=== PATIENT | male | born 1960 | race Caucasian/White ===

== ENCOUNTER 2017-09-23 15:54 | Emergency (ER) | payer MEDICARE, MEDICAID ==
--- NOTE | 2017-09-23 16:38 | RADIOLOGY REPORT (SQ) ---
EXAM DESCRIPTION: CT HEAD WITHOUT COMPLETED DATE/TIME: 09/23/2017 4:25 pm REASON FOR STUDY: head injury with LOC COMPARISON: 04/06/2008, 09/20/2007 TECHNIQUE: Axial images acquired through the brain without intravenous contrast. Images reviewed wi th bone, brain and subdural windows. Images stored on PACS. All CT scanners at this facility use dose modulation, iterative reconstruction, and/or weight based d osing when appropriate to reduce radiation dose to as low as reasonably achievable (ALARA). [facility]: Dose Right [facility]: CareDose [facility]: Dose Right [facility]: Teradose 4D [facility]: [employer] RADIATION DOSE: Up-to-date CT equipment and radiation dose reduction techniques were employed. CTDIv ol: 64.6 mGy. DLP: 1163 mGy-cm. mGy. LIMITATIONS: None. FINDINGS: VENTRICLES: Normal size and contour. CEREBRUM: No masses. No hemorrhage. No midline shift. No evidence for acute infarction. Normal gra y/white matter differentiation. No areas of low density in the white matter. CEREBELLUM: No masses. No hemorrhage. No alteration of density. No evidence for acute infarction. EXTRAAXIAL SPACES: No fluid collections. No masses. ORBITS AND GLOBE: No intra- or extraconal masses. Normal contour of globe without masses. CALVARIUM: No fracture. PARANASAL SINUSES: No fluid or mucosal thickening. SOFT TISSUES: No mass or hematoma. OTHER: No other significant finding. IMPRESSION: NORMAL BRAIN CT WITHOUT CONTRAST. EVIDENCE OF ACUTE STROKE: NO. COMMENT: Quality ID # [id number]: Final reports with documentation of one or more dose reduction techniques (e.g., Automated exposure control, adjustment of the mA and/or kV according to patient size, use of iterative reconstruction technique) TECHNICAL DOCUMENTATION: JOB ID: [id number]- All Rights Reserved
[2017-09-23] MEDS ORDERED: NORMAL SALINE 1000 ML 1,000 ML IV ONE (17:23)
[2017-09-23] MEDS ORDERED: DIPH/PERTUSS(ACELL)/TETANUS VAC/PF 0.5 ML SYR (>=10YO) IM ONE ×2 (17:25→22:14)
--- NOTE | 2017-09-23 17:25 | ER Document Report ---
ED Medical Screen (RME) - General Chief Complaint: Head Injury with LOC Stated Complaint: FALL/HEAD INJURY Time Seen by Provider: 09/23/17 17:22 Notes: a wooden roof structure fell onto the patient's head. He states he was unconscious for 3-4 minutes per bystanders. He has had a head CT already which is unremarkable. He complains of neck pain with bilateral hand numbness. He also has pain in between his shoulder blades. He denies any other injuries. TRAVEL OUTSIDE OF THE [place] IN LAST 30 DAYS: No - Related Data Allergies/Adverse Reactions: No Known Allergies Allergy (Verified 09/23/17 16:05) Past Medical History - Social History Chew tobacco use (# tins/day): No Frequency of alcohol use: None Drug Abuse: Marijuana - Past Medical History Cardiac Medical History: Reports: Hx Hypercholesterolemia, Hx Hypertension Endocrine Medical History: Reports: Hx Diabetes Mellitus Type 2 Renal/ Medical History: Denies: Hx Peritoneal Dialysis Psychiatric Medical History: Reports: Hx Bipolar Disorder Past Surgical History: Reports: Hx Cardiac Surgery - electrophysiology, Hx Orthopedic Surgery - right knee - Immunizations Hx Diphtheria, Pertussis, Tetanus Vaccination: Yes - UTD Physical Exam - Vital signs Vitals: Temp Pulse Resp BP Pulse Ox 98.3 F 108 H 18 163/105 H 97 09/23/17 16:10 09/23/17 16:10 09/23/17 16:10 09/23/17 16:10 09/23/17 16:10 Course - Vital Signs Vital signs: Temp Pulse Resp BP Pulse Ox 98.3 F 108 H 18 163/105 H 97 09/23/17 16:10 09/23/17 16:10 09/23/17 16:10 09/23/17 16:10 09/23/17 16:10
[2017-09-23 18:24] LABS: ABSOLUTE BASOPHILS # (AUTO) 0.1 10^3/uL (0.0-0.2); ABSOLUTE EOSINOPHILS # (AUTO) 0.1 10^3/uL (0.0-0.6); ABSOLUTE LYMPHOCYTES (AUTO) 3.5 10^3/uL (0.5-4.7); ABSOLUTE MONOCYTES (AUTO) 0.7 10^3/uL (0.1-1.4); ABSOLUTE NEUT (AUTO) 6.6 10^3/uL (1.7-8.2); BASOPHILS % (AUTO) 1.3 % (0-2); EOSINOPHILS % (AUTO) 0.9 % (0-6); HEMATOCRIT 43.1 % (37.9-51.0); HEMOGLOBIN 13.8 g/dL (13.5-17.0); HGB HCT DIFFERENCE -1.7; LYMPHOCYTES % (AUTO) 31.9 % (13-45); MEAN CORPUSCULAR HEMOGLOBIN 19.9 pg (27.0-33.4); MEAN CORPUSCULAR HGB CONC 32.1 g/dL (32.0-36.0); MONOCYTES % (AUTO) 6.5 % (3-13); RED BLOOD COUNT 6.96 10^6/uL (4.35-5.55); RED CELL DISTRIBUTION WIDTH 16.7 % (11.5-14.0); SEGMENTED NEUTROPHILS % (AUTO) 59.4 % (42-78); WHITE BLOOD COUNT 11.1 10^3/uL (4.0-10.5)
[2017-09-23 18:46] LABS: MICROCYTOSIS 3+; TOXIC GRANULATION SLIGHT
[2017-09-23 18:47] LABS: ANISOCYTOSIS 1+; HYPOCHROMASIA 1+; POIKILOCYTOSIS SLIGHT
[2017-09-23 18:48] LABS: MEAN CORPUSCULAR VOLUME 62 fl (80-97)
--- NOTE | 2017-09-23 19:20 | RADIOLOGY REPORT (SQ) ---
EXAM DESCRIPTION: MRI CERVICAL SPINE WITHOUT COMPLETED DATE/TIME: 09/23/2017 7:00 pm REASON FOR STUDY: trauma/neck pain/hand numbness COMPARISON: None. TECHNIQUE: Sagittal and Axial imaging includes T1, T2, STIR and gradient echo sequences. LIMITATIONS: Study limited due to the patient's body habitus and motion artifact. FINDINGS: ALIGNMENT: Normal. VERTEBRAE: Intact. BONE MARROW: No marrow replacement. Reactive endplate signal change in the lower cervical spine. DISCS: Decreased height and signal of the lower cervical discs. HARDWARE: None in the spine. CORD AND BASE OF BRAIN: Normal in size and signal intensity. SOFT TISSUES: No soft tissue masses. C1-C2: No significant spinal stenosis. C2-C3: No significant spinal stenosis or exit foraminal stenosis. C3-C4: No significant spinal stenosis or exit foraminal stenosis. C4-C5: No significant spinal stenosis or exit foraminal stenosis. C5-C6: Mild diffuse posterior disc and osteophyte. Mild spinal stenosis. Probable facet arthropathy and exit foraminal stenosis, difficult to visualize due to motion artifact. C6-C7: Mild diffuse posterior disc and osteophyte. Mild spinal stenosis. Probable facet arthropathy and exit foraminal stenosis, difficult to visualize due to motion artifact. C7-T1: No significant spinal stenosis or exit foraminal stenosis. UPPER THORACIC: Incompletely imaged. No significant spinal stenosis or exit foraminal stenosis. OTHER: No other significant finding. IMPRESSION: STUDY LIMITED DUE TO THE PATIENT'S BODY HABITUS AND MOTION ARTIFACT. 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 NO APPARENT ACUTE FINDINGS. TECHNICAL DOCUMENTATION: JOB ID: [id number] [employer]- All Rights Reserved
[2017-09-23] MEDS ORDERED: HYDROMORPHONE HCL INJ/PF 2 MG/ML AMPULE IV ONE (20:43)
--- NOTE | 2017-09-23 20:43 | ER Document Report ---
ED General - General Chief Complaint: Head Injury with LOC Stated Complaint: FALL/HEAD INJURY Time Seen by Provider: 09/23/17 17:22 Mode of Arrival: Ambulatory Information source: Patient Notes: 57-year-old male presents after 2500 pound demetrio fell on top of his head. Patient had LOC for about 10 minutes, education took about 10-15 minutes. Patient notes headache abrasion to scalp by nail as well as numbness of bilateral hands of all the digits from the knuckles distal Tetanus is not up-to-date TRAVEL OUTSIDE OF THE [place] IN LAST 30 DAYS: No - HPI Onset: Just prior to arrival Onset/Duration: Sudden Quality of pain: Achy Severity: Moderate Pain Level: 1 Associated symptoms: Weakness, Other Exacerbated by: Movement Relieved by: Denies Similar symptoms previously: No Recently seen / treated by doctor: No - Related Data Allergies/Adverse Reactions: No Known Allergies Allergy (Verified 09/23/17 16:05) Past Medical History - Social History Smoking Status: Current Every Day Smoker Cigarette use (# per day): Yes Chew tobacco use (# tins/day): No Smoking Education Provided: No Frequency of alcohol use: None Drug Abuse: Marijuana Family History: Other - Father admitted with pneumonia Patient has suicidal ideation: No Patient has homicidal ideation: No - Past Medical History Cardiac Medical History: Reports: Hx Hypercholesterolemia, Hx Hypertension Endocrine Medical History: Reports: Hx Diabetes Mellitus Type 2 Renal/ Medical History: Denies: Hx Peritoneal Dialysis Psychiatric Medical History: Reports: Hx Bipolar Disorder Past Surgical History: Reports: Hx Cardiac Surgery - electrophysiology, Hx Orthopedic Surgery - right knee - Immunizations Hx Diphtheria, Pertussis, Tetanus Vaccination: Yes - UTD Review of Systems - Review of Systems Notes: REVIEW OF SYSTEMS: CONSTITUTIONAL : Denies fever, chills, or sweats. Denies recent illness. EENT: Denies eye, ear, throat, or mouth pain or symptoms. Denies nasal or sinus congestion or discharge. Denies throat, tongue, or mouth swelling or difficulty swallowing. CARDIOVASCULAR: Denies chest pain. Denies palpitations or racing or irregular heart beat. Denies ankle edema. RESPIRATORY: Denies cough, cold, or chest congestion. Denies shortness of breath, difficulty breathing, or wheezing. GASTROINTESTINAL: Denies abdominal pain or distention. Denies nausea, vomiting , or diarrhea. Denies blood in vomitus, stools, or per rectum. Denies black, tarry stools. Denies constipation. GENITOURINARY: Denies difficulty urinating, painful urination, burning, frequency, blood in urine, or discharge. MUSCULOSKELETAL: Denies back or neck pain or stiffness. Denies joint pain or swelling. SKIN: Denies rash, lesions or sores. HEMATOLOGIC : Denies easy bruising or bleeding. LYMPHATIC: Denies swollen, enlarged glands. NEUROLOGICAL: Admits to head injury loss of consciousness numbness of the digits on both hands PSYCHIATRIC: Denies anxiety or stress. Denies depression, suicidal ideation, or homicidal ideation. ALL OTHER SYSTEMS REVIEWED AND NEGATIVE. Dictation was performed using [employer] voice recognition software PHYSICAL EXAMINATION: GENERAL: Well-appearing, well-nourished and in no acute distress. HEAD: Atraumatic, normocephalic. EYES: Pupils equal round and reactive to light, extraocular movements intact, sclera anicteric, conjunctiva are normal. ENT: Nares patent, oropharynx clear without exudates. Moist mucous membranes. NECK: Normal range of motion, supple without lymphadenopathy LUNGS: Breath sounds clear to auscultation bilaterally and equal. No wheezes rales or rhonchi. HEART: Regular rate and rhythm without murmurs ABDOMEN: Soft, nontender, nondistended abdomen. No guarding, no rebound. No masses appreciated. Musculoskeletal: Normal range of motion, no pitting or edema. No cyanosis. NEUROLOGICAL: Cranial nerves grossly intact. Normal speech, normal gait. Normal sensory, motor exams except for paresthesias of the distal fingers on both hands PSYCH: Normal mood, normal affect. SKIN: Laceration scalp measuring 7 cm no foreign body noted Physical Exam - Vital signs Vitals: Temp Pulse Resp BP Pulse Ox 98.3 F 108 H 18 163/105 H 97 09/23/17 16:10 09/23/17 16:10 09/23/17 16:10 09/23/17 16:10 09/23/17 16:10 Course - Re-evaluation Re-evalutation: CT head was negative laceration was cleansed extensively yaritza were placed, MRI was performed of the cervical spine which noted no acute abnormality, patient is in a c-collar but admits to continued numbness 09/23/17 20:42 vidant paged 09/23/17 20:45 Dr Jarquin trauma defers on accepts , requests neurosurgery consult 09/23/17 21:[address] Jorgensen Neurosurgery he requests follow up in the outpatient service. keep in collar aspen he does not believe there is any spinal cord injury, Patient agrees with this plan will be discharged 09/24/17 00:56 After performing a Medical Screening Examination, I estimate there is LOW risk for INTRACRANIAL HEMORRHAGE, UNSTABLE SPINE FRACTURE, CENTRAL CORD SYNDROME, CAUDA EQUINA, THORACIC AORTIC DISSECTION, PNEUMOTHORAX, PERFORATED BOWEL, RUPTURED ABDOMINAL AORTIC ANEURYSM, ACUTE TENDON RUPTURE, COMPARTMENT SYNDROME, or OPEN FRACTURE, thus I consider the discharge disposition reasonable. Also, there is no evidence or peritonitis, sepsis, or toxicity. I have reevaluated this patient multiple times and no significant life threatening changes are noted. The patient and I have discussed the diagnosis and risks, and we agree with discharging home to follow-up with their primary doctor with the understanding that symptoms and presentations can change. We also discussed returning to the Emergency Department immediately if new or worsening symptoms occur. We have discussed the symptoms which are most concerning (e.g., bloody stool, fever, changing or worsening pain, vomiting) that necessitate immediate return. 09/24/17 00:59 09/24/17 01:00 - Vital Signs Vital signs: Temp Pulse Resp BP Pulse Ox 98.3 F 27 L 18 161/74 H 95 09/23/17 20:53 09/23/17 23:44 09/23/17 16:10 09/23/17 23:15 09/23/17 23:44 - Laboratory Result Diagrams: 09/23/17 17:56 09/23/17 20:25 Laboratory results interpreted by me: 09/23/17 09/23/17 17:56 20:25 WBC 11.1 H RBC 6.96 H MCV 62 L MCH 19.9 L RDW 16.7 H Glucose 111 H ALT 73 H - Diagnostic Test Radiology reviewed: Image reviewed, Reports reviewed Procedures - Laceration/Wound Repair Upper Head Time completed: 01:00 Wound length (cm): 7 Wound's Depth, Shape: Superficial Laceration pre-procedure: Sterile PPE donned Wound explored: Clean, No foreign body removed Irrigated w/ Saline (mLs): 2,000 Wound Debrided: Minimal Wound Repaired With: [place] Number of Sutures: 4 Post-procedure wound care: Sterile dressing applied Post-procedure NV exam normal: Yes Complications: No Discharge - Discharge Clinical Impression: Paresthesia of hand, bilateral Head injury due to trauma Qualifiers: Encounter type: initial encounter Qualified Code(s): S09.90XA - Unspecified injury of head, initial encounter Disposition: HOME, SELF-CARE Instructions: Head Injury Precautions ([facility]) Additional Instructions: Follow up [phone] Dr Livan Wharton for follow up Please keep collar in place until cleared by him Follow-up in 3 5 days for removal of yaritza Prescriptions: Cephalexin Monohydrate [Keflex 500 mg Capsule] 500 mg PO Q6H 10 Days capsule Cyclobenzaprine HCl [Flexeril 10 mg Tablet] 10 mg PO TIDP PRN #15 tab PRN Reason: Oxycodone HCl/Acetaminophen [Percocet 5-325 mg Tablet] 1 - 2 tab PO Q4H PRN #15 tablet PRN Reason: Referrals: DAVID SUN MD [Primary Care Provider] - Follow up as needed
[2017-09-23 21:15] LABS: ALANINE AMINOTRANSFERASE 73 U/L (21-72); ALBUMIN 4.1 g/dL (3.5-5.0); ALKALINE PHOSPHATASE 104 U/L (38-126); ANION GAP 10 (5-19); ASPARTATE AMINO TRANSFERASE 57 U/L (17-59); BILIRUBIN,DIRECT 0.4 mg/dL (0.0-0.4); BILIRUBIN,TOTAL 0.8 mg/dL (0.2-1.3); BLOOD UREA NITROGEN 8 mg/dL (7-20); CALCIUM 9.2 mg/dL (8.4-10.2); CARBON DIOXIDE 28 mmol/L (22-30); CHLORIDE 104 mmol/L (98-107); CREATININE RESULT 0.66 mg/dL (0.52-1.25); GLUCOSE 111 mg/dL (75-110); SODIUM 142.4 mmol/L (137-145); TOTAL PROTEIN 6.9 g/dL (6.3-8.2)
[2017-09-23] MEDS ORDERED: HYDROCODONE/ACETAMINOPHEN 5-325 MG TABLET PO ONE (23:20)
[2017-09-23] MEDS ORDERED: HYDROCODONE/ACETAMINOPHEN 5-325 MG 6 TAB/DSPK PO PRN (23:40)
[2017-09-23 23:50] VITALS: BP 161/74
== END 2017-09-23 23:51 | disposition home or self-care (01) ==
LOC: ER 15:54
PROC: 0HQ0XZZ Repair Scalp Skin, External Approach (ICD-10-PCS; principal; 2017-09-23)
DX: S01.91XA Laceration without foreign body of unspecified part of head, initial encounter (principal); S09.90XA Unspecified injury of head, initial encounter; R20.0 Anesthesia of skin; R41.82 Altered mental status, unspecified; W22.8XXA Striking against or struck by other objects, initial encounter; F17.210 Nicotine dependence, cigarettes, uncomplicated
CPT/HCPCS: 99284; 90471; 96374; 36415; 85025; 80053; 72141; 70450; 90715; 12002; L0172; L0120; J1170; J7030; A9270

== ENCOUNTER → 2018-04-06 | Outpatient (CLI) | payer MEDICARE, MEDICAID ==
--- NOTE | 2018-04-06 16:43 | RADIOLOGY REPORT (SQ) ---
EXAM DESCRIPTION: SHOULDER RIGHT 2 OR MORE VIEWS COMPLETED DATE/TIME: 04/06/2018 4:26 pm REASON FOR STUDY: S43.401A UNSPECIFIED SPRAIN OF RIGHT SHOULDER JOINT, INIT ENCNTR S43.401A UNSPECI FIED SPRAIN OF RIGHT SHOULDER JOINT, INIT EN COMPARISON: None. NUMBER OF VIEWS: Three views. TECHNIQUE: Internal rotation, external rotation, and Y view images acquired of the right shoulder. LIMITATIONS: None. FINDINGS: MINERALIZATION: Normal. BONES: No fracture. JOINTS: AC joint width upper limits of normal at 9 mm. Clavicle not elevated. Coracoclavicular dist ance is normal. VISUALIZED LUNGS AND RIBS: No pneumothorax. No rib fracture. SOFT TISSUES: No radiopaque foreign body. OTHER: No other significant finding. IMPRESSION: Potential type 1 AC joint separation. Clinical correlation is needed. Compared to oppo site shoulder with weights if clinically indicated. TECHNICAL DOCUMENTATION: JOB ID: [id number] [employer]- All Rights Reserved Reading location - IP/workstation name: [email or web address]
== END ==
LOC: RAD 16:14
PROVIDERS: ATTEND Family Medicine
DX: S43.401A Unspecified sprain of right shoulder joint, initial encounter (principal); X58.XXXA Exposure to other specified factors, initial encounter

== ENCOUNTER 2018-08-30 16:05 | Inpatient (IN) | payer MEDICARE, MEDICAID ==
--- NOTE | 2018-08-30 16:29 | ER Document Report ---
ED Medical Screen (RME) - General Chief Complaint: Skin Problem Stated Complaint: LEFT TOE PAIN, SWELLING Time Seen by Provider: 08/30/18 16:23 Mode of Arrival: Ambulatory Information source: Patient Notes: 58-year-old male with type 2 diabetes, hypertension, bipolar disorder presents with pain and swelling of the left second toe. Patient states that pain and swelling have been present for over 1 week. He states it initially started as cracks in his skin but quickly developed skin color changes. Patient has been taken amoxicillin at thousand milligrams twice daily for 1 week. I have greeted and performed a rapid initial assessment of this patient. A comprehensive ED assessment and evaluation of the patient, analysis of test results and completion of medical decision making process we will be contacted by additional ED providers. PHYSICAL EXAMINATION: Vital signs reviewed GENERAL: Well-appearing, well-nourished and in no acute distress. LUNGS: No respiratory distress Musculoskeletal: Left second toe-swollen, areas of skin breakdown. NEUROLOGICAL: Normal speech, normal gait. PSYCH: Normal mood, normal affect. SKIN: Warm, Dry, normal turgor, no rashes or lesions noted. TRAVEL OUTSIDE OF THE [place] IN LAST 30 DAYS: No - HPI Onset: Last week Onset/Duration: Gradual, Persistent Quality of pain: Throbbing Associated Symptoms: denies: Fever, Nausea, Vomiting Exacerbated by: Movement, Walking Relieved by: Denies Similar symptoms previously: No Recently seen / treated by doctor: No - Related Data Smoking: Cigar Frequency of alcohol use: None Drug Abuse: None Allergies/Adverse Reactions: No Known Allergies Allergy (Verified 09/23/17 16:05) Past Medical History - Past Medical History Cardiac Medical History: Reports: Hx Hypercholesterolemia, Hx Hypertension Endocrine Medical History: Reports: Hx Diabetes Mellitus Type 2 Renal/ Medical History: Denies: Hx Peritoneal Dialysis Psychiatric Medical History: Reports: Hx Bipolar Disorder Past Surgical History: Reports: Hx Cardiac Surgery - electrophysiology, Hx Orthopedic Surgery - right knee - Immunizations Hx Diphtheria, Pertussis, Tetanus Vaccination: Yes - UTD Physical Exam - Vital signs Vitals: Temp Pulse Resp BP Pulse Ox 97.7 F 102 H 16 157/77 H 99 08/30/18 16:18 08/30/18 16:18 08/30/18 16:18 08/30/18 16:18 08/30/18 16:18 Course - Vital Signs Vital signs: Temp Pulse Resp BP Pulse Ox 97.7 F 102 H 16 157/77 H 99 08/30/18 16:18 08/30/18 16:18 08/30/18 16:18 08/30/18 16:18 08/30/18 16:18 Doctor's Discharge - Discharge Referrals: DAVID SUN MD [Primary Care Provider] - Follow up as needed
[2018-08-30] MEDS ORDERED: CLINDAMYCIN 900 MG/D5W RTU 900 MG/50 ML RTUPB IV SCH (16:30)
--- NOTE | 2018-08-30 17:23 | RADIOLOGY REPORT (SQ) ---
EXAM DESCRIPTION: FOOT LEFT COMPLETE COMPLETED DATE/TIME: 08/30/2018 5:07 pm REASON FOR STUDY: toe infection COMPARISON: None. EXAM PARAMETERS: NUMBER OF VIEWS: Three views. TECHNIQUE: AP, lateral and oblique radiographic images acquired of the left foot. LIMITATIONS: None. FINDINGS: MINERALIZATION: Normal. BONES: Minimally displaced Fracture of the distal phalanx of the left 2nd toe with distraction at the joint space, pathologic fracture from infection is likely given the clinical history. No other frac ture identified. JOINTS: No effusion. SOFT TISSUES: Moderate 2nd digit and mild 1st digit soft tissue swelling. No radiopaque foreign body . OTHER: No other significant finding. IMPRESSION: Minimally displaced Fracture of the distal phalanx of the left 2nd toe with distraction at the joint space, pathologic fracture from infection is likely given the clinical history. No othe r fracture identified. TECHNICAL DOCUMENTATION: JOB ID: [id number]- All Rights Reserved Reading location - IP/workstation name: [email or web address]
[2018-08-30 18:04] LABS: ABSOLUTE BASOPHILS # (AUTO) 0.1 10^3/uL (0.0-0.2); ABSOLUTE EOSINOPHILS # (AUTO) 0.1 10^3/uL (0.0-0.6); ABSOLUTE LYMPHOCYTES (AUTO) 2.5 10^3/uL (0.5-4.7); ABSOLUTE MONOCYTES (AUTO) 0.8 10^3/uL (0.1-1.4); ABSOLUTE NEUT (AUTO) 6.4 10^3/uL (1.7-8.2); BASOPHILS % (AUTO) 1.1 % (0-2); EOSINOPHILS % (AUTO) 1.5 % (0-6); HEMATOCRIT 38.2 % (37.9-51.0); HEMOGLOBIN 12.6 g/dL (13.5-17.0); LYMPHOCYTES % (AUTO) 25.4 % (13-45); MEAN CORPUSCULAR HEMOGLOBIN 20.1 pg (27.0-33.4); MEAN CORPUSCULAR HGB CONC 33.1 g/dL (32.0-36.0); PLATELET COUNT 412 10^3/uL (150-450); RED BLOOD COUNT 6.27 10^6/uL (4.35-5.55); RED CELL DISTRIBUTION WIDTH 16.6 % (11.5-14.0); TOTAL CELLS COUNTED % (AUTO) 100 %
[2018-08-30 18:07] LABS: MEAN CORPUSCULAR VOLUME 61 fl (80-97)
[2018-08-30 18:24] LABS: ALANINE AMINOTRANSFERASE 20 U/L (21-72); ALBUMIN 3.7 g/dL (3.5-5.0); ALKALINE PHOSPHATASE 100 U/L (38-126); ANION GAP 8 (5-19); ASPARTATE AMINO TRANSFERASE 20 U/L (17-59); BILIRUBIN,DIRECT 0.5 mg/dL (0.0-0.4); BILIRUBIN,TOTAL 0.7 mg/dL (0.2-1.3); BLOOD UREA NITROGEN 9 mg/dL (7-20); CALCIUM 9.5 mg/dL (8.4-10.2); CARBON DIOXIDE 26 mmol/L (22-30); CHLORIDE 105 mmol/L (98-107); GLUCOSE 113 mg/dL (75-110); POTASSIUM 4.3 mmol/L (3.6-5.0); SODIUM 139.4 mmol/L (137-145); TOTAL PROTEIN 6.6 g/dL (6.3-8.2)
[2018-08-30 18:28] LABS: ANISOCYTOSIS 2+; HYPOCHROMASIA 2+; OVALOCYTES 1+; POIKILOCYTOSIS 1+; TOXIC GRANULATION SLIGHT
[2018-08-30 18:29] LABS: PLATELET COMMENT ADEQUATE
[2018-08-30 18:30] LABS: TARGET CELLS SLIGHT
[2018-08-30] MEDS ORDERED: VANCOMYCIN HCL INJ 1000 MG VIAL IV ONE (18:36)
[2018-08-30] MEDS ORDERED: PIPERACILLIN/TAZOBACTAM 3.375 GM VIAL IV ONE (18:36)
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
[2018-08-30] MEDS ORDERED: NORMAL SALINE 1000 ML 1,000 ML IV PRN (21:15)
[2018-08-30] MEDS ORDERED: DEXTROSE 40% GEL 15 GM TUBE PO PRN ×2 (21:16)
[2018-08-30] MEDS ORDERED: MORPHINE SULFATE 10 MG/ML INJ IV ONE (21:16)
[2018-08-30] MEDS ORDERED: ONDANSETRON HCL INJ/PF 4 MG/2 ML SDV IV ONE (21:16)
[2018-08-30] MEDS ORDERED: INSULIN REG, HUMAN 100 UNIT/ML 3 ML VIAL (PYX) SUBCUT PRN (21:16)
[2018-08-30] MEDS ORDERED: DEXTROSE 50%-WATER 25 GM/50 ML DISP.SYRIN IV PRN ×2 (21:16)
[2018-08-30] MEDS ORDERED: GLUCAGON,HUMAN RECOMB 1 MG INJ IM PRN (21:16)
[2018-08-30] MEDS ORDERED: PROPRANOLOL HCL 20 MG TABLET PO ONE (21:45)
[2018-08-30] MEDS ORDERED: LITHIUM CARBONATE 300 MG CAPSULE PO ONE (21:45)
[2018-08-30] MEDS: CIPROFLOXACIN 400 MG/D5W RTU 400 MG/200 ML RTUPB IV SCH (22:33)
[2018-08-31] MEDS ORDERED: ACETAMINOPHEN INJ/PF 1000 MG/100 ML SDV IV SCH
[2018-08-31] MEDS: ACETAMINOPHEN 1,000 MG/100 ML RTUPB IV SCH ×3 (01:49→12:43)
--- NOTE | 2018-08-31 09:41 | Physician Advisory Note ---
Physician Advisor ProgressNote .: Pursuant to the plan for [facility], I have reviewed the medical record for this patient. Physician Advisor Statement: Please consider documenting, if you agree: 1. "obesity w/BMI 41.8" 2. Please avoid term "septic toe" when a patient has an infected toe - A. Need more specific term(s) for the underlying toe infxn: cellulitis? abscess? diabetic ulcer? ... Is there gangrene? acute &/or chronic osteomyelitis? ... B. Now need to clarify that pt was or was not felt to be systemically "septic due to toe infxn" when the term was used. - & if so, then document the findings that support the dx of systemic sepsis. Status: Medicare pt w/mult concerning chronic co-morbidities, here w/toe infection including osteomyelitis (?acute on chronic, or ...) & cellultis ( gangrene?). Also has underlying anemia. Going for amputation of toe today. Not safe for d/c today. - Appropriate for change to Inpatient status. Thanks! CK
[2018-08-31] MEDS: DOCUSATE SODIUM 100 MG CAPSULE PO SCH ×2 (10:39→17:50)
[2018-08-31] MEDS: CIPROFLOXACIN 400 MG/D5W RTU 400 MG/200 ML RTUPB IV SCH ×2 (10:41→21:51)
--- NOTE | 2018-08-31 12:01 | PDOC PROGRESS REPORT ---
Subjective Progress Note for:: 08/31/18 Subjective:: This is a 58-year-old diabetic male with a severe diabetic foot infection. Patient reports pain, drainage, swelling, and redness of the left second toe. The patient denies fevers, chills, chest pain, shortness of breath, dizziness, orthostasis, fatigue, malaise, blurry vision, abdominal pain, nausea, or vomiting. Reason For Visit: SEPTIC LEFT SECOND TOE WITH FRACTURE Physical Exam Vital Signs: Temp Pulse Resp BP Pulse Ox 97.4 F 75 16 144/94 H 100 08/31/18 07:33 08/31/18 07:33 08/31/18 07:33 08/31/18 07:33 08/31/18 07:33 Intake & Output 08/30/18 08/31/18 09/01/18 06:59 06:59 06:59 Intake Total 300 Balance 300 Weight 139.8 kg General appearance: PRESENT: no acute distress Head exam: PRESENT: atraumatic, normocephalic Eye exam: PRESENT: EOMI, PERRLA. ABSENT: scleral icterus Mouth exam: PRESENT: moist, neck supple Neck exam: ABSENT: meningismus, tenderness, thyromegaly, tracheal deviation Respiratory exam: PRESENT: symmetrical, unlabored. ABSENT: accessory muscle use , chest wall tenderness, tachypnea Cardiovascular exam: PRESENT: RRR Pulses: PRESENT: +2 pedal pulses bilateral Vascular exam: PRESENT: normal capillary refill. ABSENT: pallor GI/Abdominal exam: PRESENT: normal bowel sounds, soft. ABSENT: distended, tenderness Rectal exam: PRESENT: deferred Extremities exam: PRESENT: other - See comments below Neurological exam: PRESENT: alert, awake, oriented to person, oriented to place , oriented to time, oriented to situation, CN II-XII grossly intact Psychiatric exam: ABSENT: agitated, anxious, depressed Focused psych exam: ABSENT: delusional Skin exam: ABSENT: cyanosis, jaundice, pallor Additional comments: Extremity exam: Necrosis and gangrene of the left second toe. There is ulceration and purulent drainage present. There is edema of the entire left foot. There is redness extending to the midfoot. Results Impressions: Foot X-Ray 08/30/18 16:27 IMPRESSION: Minimally displaced Fracture of the distal phalanx of the left 2nd toe with distraction at the joint space, pathologic fracture from infection is likely given the clinical history. No other fracture identified. Assessment & Plan - Diagnosis (1) Type 2 diabetes mellitus with left diabetic foot infection Is this a current diagnosis for this admission?: Yes (2) Gangrene associated with type 2 diabetes mellitus Is this a current diagnosis for this admission?: Yes - Inpatient Certification Based on my medical assessment, after consideration of the patient's comorbidities, presenting symptoms, or acuity I expect that the services needed warrant INPATIENT care.: Yes I certify that my determination is in accordance with my understanding of Medicare's requirements for reasonable and necessary INPATIENT services [42 CFR 412.3e].: Yes Medical Necessity: Need for IV Antibiotics, Need for Surgery, Risk of Complication if Not Cared For in Hospital - Plan Summary Plan Summary: This is a 58-year-old male with a severe diabetic foot infection. The patient has evidence of necrosis/gangrene of the left second toe. The patient will require amputation today. Risks/benefits discussed, informed consent obtained, and all questions answered.
[2018-08-31] MEDS ORDERED: BUPIVACAINE HCL 0.5 % INJ/PF 30 ML SDV ONE (12:46)
[2018-08-31] MEDS ORDERED: FENTANYL CITRATE INJ/PF 100 MCG/2 ML AMPUL ONE (13:44)
[2018-08-31] MEDS ORDERED: MIDAZOLAM 2 MG/2 ML INJ ONE (13:45)
[2018-08-31] MEDS ORDERED: HYDROMORPHONE HCL INJ/PF 2 MG/ML AMPULE ONE (13:45)
[2018-08-31] MEDS ORDERED: PROPOFOL INJ 200 MG/20 ML VIAL IV ONE (13:45)
[2018-08-31] MEDS ORDERED: LIDOCAINE 1% INJ-PF (10 MG/ML) 30 ML SDV ONE (14:08)
[2018-08-31] MEDS ORDERED: DIPHENHYDRAMINE HCL 50 MG/ML VIAL IV PRN (14:19)
[2018-08-31] MEDS ORDERED: FENTANYL CITRATE INJ/PF 100 MCG/2 ML AMPUL IV PRN ×2 (14:19)
[2018-08-31] MEDS ORDERED: PROMETHAZINE HCL INJ 25 MG/1 ML VIAL IV PRN (14:19)
--- NOTE | 2018-08-31 15:30 | Operative Report ---
Nonrecallable Operative Report DATE OF SURGERY: 08/31/18 PREOPERATIVE DIAGNOSIS: Wet gangrene of the left second toe POSTOPERATIVE DIAGNOSIS: Same as above OPERATION: Ray amputation of the left second toe SURGEON: SONU MCCANN ANESTHESIA: LMAC TISSUE REMOVED OR ALTERED: 1. Left second toe. 2. Wound culture COMPLICATIONS: None apparent ESTIMATED BLOOD LOSS: Any 5 cc PROCEDURE: Drains/implants: None. Procedure in detail: After informed consent was obtained, the patient was brought to the operating room and laid in the supine position. The area of the left foot was prepped and draped in normal sterile fashion. There was purulent material emanating from the tip of the left second toe. A culture was taken in the deep tissues of the distal left second toe. A tennis racquet incision was created around the base of the second toe on the left. This was done after adequate local anesthesia had been performed. Dissection was carried down to the bone using sharp dissection. The toe was then disarticulated from the metatarsal head. This was done sharply. Hemostasis was achieved using Bovie electrocautery. The metatarsal was cleaned, and large bone cutters were used to divide the metatarsal, proximal to the head. Once this was completed, further hemostasis was achieved using electrocautery. The soft tissues of the foot were reapproximated loosely over the bone to provide coverage. The skin was left open. A Betadine soaked dressing was then placed over the wound. Once the dressing was placed, the procedure was concluded. All sponge, instrument, and needle counts were correct x2. Condition: Fair.
[2018-08-31] MEDS: METFORMIN HCL 500 MG TABLET PO SCH (17:50)
[2018-08-31] MEDS: IBUPROFEN 800 MG TABLET PO SCH (17:51)
--- NOTE | 2018-08-31 19:40 | EKG REPORT ---
SEVERITY:- NORMAL ECG - SINUS RHYTHM : Confirmed by: Chalino Olivier 31-Aug-2018 19:39:28
[2018-08-31 19:53] LABS: PATH REVIEW PATHOLOGIST REVIEWED
[2018-08-31] MEDS: HYDROCODONE/ACETAMINOPHEN 5-325 MG TABLET PO PRN (20:26)
[2018-08-31] MEDS: PROPRANOLOL HCL 20 MG TABLET PO SCH (21:51)
[2018-08-31] MEDS: FAMOTIDINE 20 MG TABLET PO SCH (21:52)
[2018-09-01] MEDS: METFORMIN HCL 500 MG TABLET PO SCH ×2 (09:26→19:04)
[2018-09-01] MEDS: IBUPROFEN 800 MG TABLET PO SCH ×3 (09:26→19:04)
[2018-09-01] MEDS: CIPROFLOXACIN 400 MG/D5W RTU 400 MG/200 ML RTUPB IV SCH ×2 (12:20→21:33)
[2018-09-01] MEDS: PROPRANOLOL HCL 20 MG TABLET PO SCH ×2 (12:21→21:33)
[2018-09-01] MEDS: FAMOTIDINE 20 MG TABLET PO SCH ×2 (12:21→21:33)
[2018-09-01] MEDS: DOCUSATE SODIUM 100 MG CAPSULE PO SCH ×2 (12:21→19:04)
--- NOTE | 2018-09-01 16:20 | PDOC PROGRESS REPORT ---
Subjective Progress Note for:: 09/01/18 Subjective:: No pains left foot. Has neuropathy prior to surgery Reason For Visit: WET GANGRENE OF LEFT 2ND TOE S/P AMPUTATION Physical Exam Vital Signs: Temp Pulse Resp BP Pulse Ox 97.5 F 68 16 152/84 H 99 09/01/18 12:00 09/01/18 12:00 09/01/18 12:00 09/01/18 12:00 09/01/18 12:00 Intake & Output 08/31/18 09/01/18 09/02/18 06:59 06:59 06:59 Intake Total 200 Balance 200 Exam: Dressings removed. Wound looks clean and dry. Redressed with xeroform gauze over the wound andcovered with 4x4 and kerlix Results Impressions: Foot X-Ray 08/30/18 16:27 IMPRESSION: Minimally displaced Fracture of the distal phalanx of the left 2nd toe with distraction at the joint space, pathologic fracture from infection is likely given the clinical history. No other fracture identified. Assessment & Plan - Time Time Spent with patient: 15-24 minutes - Inpatient Certification Medical Necessity: Significant Comorbidiites Make Outpatient Treatment Too Risky , Need for IV Antibiotics, Risk of Complication if Not Cared For in Hospital - Plan Summary Plan Summary: Continue IV antibiotics Start wet to dry dressings tomorrow Re-evaluate in next 48-72 hrs for delayed primary closure.
[2018-09-02] MEDS: HYDROCODONE/ACETAMINOPHEN 5-325 MG TABLET PO PRN ×4 (01:08→21:17)
[2018-09-02 05:07] LABS: ABSOLUTE BASOPHILS # (AUTO) 0.2 10^3/uL (0.0-0.2); ABSOLUTE EOSINOPHILS # (AUTO) 0.2 10^3/uL (0.0-0.6); ABSOLUTE LYMPHOCYTES (AUTO) 5.4 10^3/uL (0.5-4.7); ABSOLUTE MONOCYTES (AUTO) 0.8 10^3/uL (0.1-1.4); ABSOLUTE NEUT (AUTO) 7.2 10^3/uL (1.7-8.2); BASOPHILS % (AUTO) 1.4 % (0-2); EOSINOPHILS % (AUTO) 1.6 % (0-6); HEMATOCRIT 38.5 % (37.9-51.0); HEMOGLOBIN 12.6 g/dL (13.5-17.0); LYMPHOCYTES % (AUTO) 39.3 % (13-45); MEAN CORPUSCULAR HEMOGLOBIN 19.9 pg (27.0-33.4); MEAN CORPUSCULAR HGB CONC 32.6 g/dL (32.0-36.0); MEAN CORPUSCULAR VOLUME 61 fl (80-97); MONOCYTES % (AUTO) 5.7 % (3-13); PLATELET COUNT 385 10^3/uL (150-450); RED CELL DISTRIBUTION WIDTH 16.4 % (11.5-14.0); TOTAL CELLS COUNTED % (AUTO) 100 %; WHITE BLOOD COUNT 13.8 10^3/uL (4.0-10.5)
[2018-09-02 05:29] LABS: ANION GAP 11 (5-19); BLOOD UREA NITROGEN 10 mg/dL (7-20); CALCIUM 9.6 mg/dL (8.4-10.2); CARBON DIOXIDE 26 mmol/L (22-30); CHLORIDE 102 mmol/L (98-107); GLUCOSE 92 mg/dL (75-110); POTASSIUM 4.1 mmol/L (3.6-5.0); SODIUM 138.5 mmol/L (137-145)
[2018-09-02 05:33] LABS: TOXIC GRANULATION 1+
[2018-09-02 05:34] LABS: ANISOCYTOSIS 1+; HYPOCHROMASIA SLIGHT; POIKILOCYTOSIS 1+
[2018-09-02 05:35] LABS: OVALOCYTES 1+; PLATELET COMMENT ADEQUATE; PLATELET GIANT PRESENT; SCHISTOCYTES 1+; TARGET CELLS SLIGHT
[2018-09-02] MEDS: IBUPROFEN 800 MG TABLET PO SCH ×3 (08:08→17:01)
[2018-09-02] MEDS: METFORMIN HCL 500 MG TABLET PO SCH ×2 (08:11→17:01)
[2018-09-02] MEDS: CIPROFLOXACIN HCL 500 MG TABLET PO SCH ×2 (09:41→21:17)
[2018-09-02] MEDS: PROPRANOLOL HCL 20 MG TABLET PO SCH ×2 (09:42→21:17)
[2018-09-02] MEDS: DOCUSATE SODIUM 100 MG CAPSULE PO SCH ×2 (09:42→17:02)
[2018-09-02] MEDS: FAMOTIDINE 20 MG TABLET PO SCH ×2 (09:43→21:17)
--- NOTE | 2018-09-02 10:33 | PDOC PROGRESS REPORT ---
Subjective Progress Note for:: 09/02/18 Subjective:: no pains but has neuropathy Reason For Visit: WET GANGRENE OF LEFT 2ND TOE S/P AMPUTATION Physical Exam Vital Signs: Temp Pulse Resp BP Pulse Ox 98.5 F 62 17 132/81 H 96 09/01/18 23:29 09/02/18 01:47 09/01/18 23:29 09/02/18 01:47 09/01/18 23:29 Intake & Output 09/01/18 09/02/18 09/03/18 06:59 06:59 06:59 Intake Total 1748 Output Total 950 Balance 798 Weight 130.2 kg Exam: wound looks clean. Old dressings slightly soaked with blood. No evidence of inflammation. Results Laboratory Results: 09/02/18 04:34 09/02/18 04:34 09/02/18 09/02/18 04:34 04:34 WBC 13.8 H RBC 6.30 H Hgb 12.6 L Hct 38.5 MCV 61 L MCH 19.9 L MCHC 32.6 RDW 16.4 H Plt Count 385 Seg Neutrophils % 52.0 Lymphocytes % 39.3 Monocytes % 5.7 Eosinophils % 1.6 Basophils % 1.4 Absolute Neutrophils 7.2 Absolute Lymphocytes 5.4 H Absolute Monocytes 0.8 Absolute Eosinophils 0.2 Absolute Basophils 0.2 Sodium 138.5 Potassium 4.1 Chloride 102 Carbon Dioxide 26 Anion Gap 11 BUN 10 Creatinine 0.62 Est GFR ( Amer) > 60 Est GFR (Non-Af Amer) > 60 Glucose 92 Calcium 9.6 Impressions: Foot X-Ray 08/30/18 16:27 IMPRESSION: Minimally displaced Fracture of the distal phalanx of the left 2nd toe with distraction at the joint space, pathologic fracture from infection is likely given the clinical history. No other fracture identified. Assessment & Plan - Time Time Spent with patient: 15-24 minutes - Inpatient Certification Medical Necessity: Need for IV Antibiotics, Risk of Complication if Not Cared For in Hospital - Plan Summary Plan Summary: Sart wet to dry dressings Recheck WBC in am Possible delayed primaryclosure of wound at bedside tomorrow
[2018-09-02] MEDS ORDERED: CIPROFLOXACIN 400 MG/D5W RTU 200 ML IV SCH (22:00)
[2018-09-03 05:42] LABS: ABSOLUTE BASOPHILS # (AUTO) 0.2 10^3/uL (0.0-0.2); ABSOLUTE EOSINOPHILS # (AUTO) 0.1 10^3/uL (0.0-0.6); ABSOLUTE LYMPHOCYTES (AUTO) 4.4 10^3/uL (0.5-4.7); ABSOLUTE MONOCYTES (AUTO) 0.7 10^3/uL (0.1-1.4); ABSOLUTE NEUT (AUTO) 7.3 10^3/uL (1.7-8.2); BASOPHILS % (AUTO) 1.2 % (0-2); EOSINOPHILS % (AUTO) 1.1 % (0-6); HEMATOCRIT 38.9 % (37.9-51.0); HEMOGLOBIN 12.7 g/dL (13.5-17.0); LYMPHOCYTES % (AUTO) 34.5 % (13-45); MEAN CORPUSCULAR HEMOGLOBIN 19.8 pg (27.0-33.4); MEAN CORPUSCULAR HGB CONC 32.7 g/dL (32.0-36.0); MEAN CORPUSCULAR VOLUME 61 fl (80-97); MONOCYTES % (AUTO) 5.7 % (3-13); PLATELET COUNT 351 10^3/uL (150-450); RED BLOOD COUNT 6.42 10^6/uL (4.35-5.55); RED CELL DISTRIBUTION WIDTH 16.5 % (11.5-14.0); SEGMENTED NEUTROPHILS % (AUTO) 57.5 % (42-78); TOTAL CELLS COUNTED % (AUTO) 100 %; WHITE BLOOD COUNT 12.7 10^3/uL (4.0-10.5)
[2018-09-03 06:05] LABS: ANISOCYTOSIS 2+; OVALOCYTES SLIGHT; PLATELET COMMENT ADEQUATE; POIKILOCYTOSIS SLIGHT; TARGET CELLS SLIGHT; TEAR DROP CELLS SLIGHT
[2018-09-03] MEDS: HYDROCODONE/ACETAMINOPHEN 5-325 MG TABLET PO PRN ×2 (08:14→14:35)
[2018-09-03] MEDS: METFORMIN HCL 500 MG TABLET PO SCH (08:15)
[2018-09-03] MEDS: IBUPROFEN 800 MG TABLET PO SCH ×2 (08:15→12:22)
[2018-09-03] MEDS: DOCUSATE SODIUM 100 MG CAPSULE PO SCH (09:01)
[2018-09-03] MEDS: PROPRANOLOL HCL 20 MG TABLET PO SCH (09:03)
[2018-09-03] MEDS: FAMOTIDINE 20 MG TABLET PO SCH (09:03)
[2018-09-03] MEDS: CIPROFLOXACIN HCL 500 MG TABLET PO SCH (09:03)
[2018-09-03] MEDS ORDERED: LIDOCAINE 1% INJ-PF (10 MG/ML) 30 ML SDV ONE (12:35)
[2018-09-03 14:25] VITALS: BP 157/94
--- NOTE | 2018-09-04 01:36 | DISCHARGE SUMMARY E ---
Discharge Summary NAME: MARÍA RHOADES : 1960 AGE: 58Y ADMITTED: 08/30/2018 DISCHARGED: 09/03/2018 FINAL DIAGNOSIS: 1. Wet gangrene of the left second toe. 2. Diabetes mellitus type 2. 3. Peripheral diabetic neuropathy of both feet. PROCEDURE DONE: On 08/31/2018; procedure ray amputation of the left second toe, surgeon Dr. Encinas. HOSPITAL COURSE: The patient admitted for wet gangrene on 08/30/2018 of the left second toe. He then underwent ray amputation of the left second toe by Dr. Rodas on 08/31/18. The wound was left open and the patient continued IV antibiotics. The patient also has diabetes mellitus. On 09/03/18, the wound looks clean and subsequently underwent delayed primary closure under local anesthesia at bedside by Dr. Rubalcava. The patient then discharged improved on 09/03/18. He was given a prescription for Cipro 500 mg p.o. b.i.d. for the next 7 days. He will be followed in the surgical clinic in about 10 days. The patient was given a pair of crutches and a boot to wear on his left foot. DICTATING PHYSICIAN: GILDARDO RUBALCAVA M.D. [id number] PHY#: [id number] ID: [id number] JOB#: [id number] ACCT: [id number] cc:GILDARDO RUBALCAVA M.D. >
--- NOTE | 2018-09-08 08:06 | OPERATIVE REPORT E ---
Operative Report NAME: MARÍA RHOADES : 1960 AGE: 58Y DATE OF SURGERY: 09/03/2018 ROOM: 404 PREOPERATIVE DIAGNOSIS: Post ray amputation of the left second toe done 08/31/[address] Encinas. The wound was left open. POSTOPERATIVE DIAGNOSIS: Post ray amputation of the left second toe done 08/31/[address] Encinas. The wound was left open. OPERATION: Delayed primary closure of left second toe ray amputation. SURGEON: GILDARDO RUBALCAVA M.D. ANESTHESIA: Local. DESCRIPTION OF PROCEDURE: The patient was placed in the supine position at bedside and the left foot elevated on 2 pillows. The left second toe site and the distal toes were then prepped and draped in the usual sterile fashion. Local anesthesia infiltrated surrounding area of the left second toe amputation site. With the use of 2-0 nylon the skin edges were then reapproximated as best as possible. About 4 sutures were used and skin edges came back together nicely except at the mid part. However, it is close enough to prevent any possible further poor healing. Sterile dressings were placed over the operative site with a layer of Xeroform gauze. The patient will be discharged today to be followed up at home by the home visiting nurse. He will be followed in the surgical clinic in about 1 to 2 weeks. He has a crutch and special boot for the left foot to ambulate. DICTATING PHYSICIAN: GILDARDO RUBALCAVA M.D. [id number] PHY#: [id number] ID: [id number] JOB#: [id number] ACCT: [id number] cc:GILDARDO RUBALCAVA M.D. >
== END 2018-09-03 15:03 | disposition home health service (06) | DRG 256 ==
LOC: ER 16:05 → EH 21:27 → 4N 23:50 → OBSVTOIN 09-01 12:08
PROVIDERS: ADMIT Surgery; ATTEND Surgery
PROC: 0Y6S0Z3 Detachment at Left 2nd Toe, Low, Open Approach (ICD-10-PCS; principal; 2018-08-31 14:30)
PROC: 0HQNXZZ Repair Left Foot Skin, External Approach (ICD-10-PCS; 2018-09-03)
DX: E11.52 Type 2 diabetes mellitus with diabetic peripheral angiopathy with gangrene (principal); I96 Gangrene, not elsewhere classified; M86.9 Osteomyelitis, unspecified; E11.69 Type 2 diabetes mellitus with other specified complication; E11.42 Type 2 diabetes mellitus with diabetic polyneuropathy; I10 Essential (primary) hypertension; E78.5 Hyperlipidemia, unspecified; F31.9 Bipolar disorder, unspecified; B95.1 Streptococcus, group B, as the cause of diseases classified elsewhere; B96.89 Other specified bacterial agents as the cause of diseases classified elsewhere; B35.1 Tinea unguium; F17.210 Nicotine dependence, cigarettes, uncomplicated
CPT/HCPCS: 01470; 36415; 80048; 80053; 82962; 85025; 85652; 86140; 87040; 87070; 87075; 87077; 87186; 87205; 88305; 88311; 93005; 93010; 96365; 96366; 96367; 96375; 99285; G0378; G8978-GP; G8979-GP; J0131; J0744; J1170; J2250; J2270; J2405; J2543; J2704; J3010; J3370; J3490

== ENCOUNTER 2018-09-25 12:37 | Emergency (ER) | payer MEDICARE, MEDICAID ==
--- NOTE | 2018-09-25 13:07 | ER Document Report ---
ED Medical Screen (RME) - General Chief Complaint: Wound Recheck Stated Complaint: LEFT FOOT INJURY Notes: Patient is a 58-year-old male that presents to the emergency department for chief complaint of left foot wound check. Patient reports he had his stitches removed this past , on Thursday he went out to the mall, when he got home he noticed that the wound had reopened so he came to the emergency department today to have it reevaluated.. ROS: Unless otherwise stated in this report the patient's positive and negative responses for review of systems for constitutional, eyes, ENT, cardiovascular, respiratory, gastrointestinal, neurological, genitourinary, musculoskeletal, and integumentary systems and related systems to the presenting problem are either as stated in the HPI or were not pertinent or were negative for the symptoms and/or complaints related to the presenting medical problem. PHYSICAL EXAMINATION: Vital signs reviewed. GENERAL: Well-appearing, well-nourished and in no acute distress. HEAD: Atraumatic, normocephalic. EYES: Pupils equal round extraocular movements intact, conjunctiva are normal. ENT: Nares patent NECK: Normal range of motion CV: Heart regular rate and rhythm LUNGS: No respiratory distress Musculoskeletal: Normal range of motion NEUROLOGICAL: Normal speech PSYCH: Normal mood, normal affect. Skin: Chronic appearing wound, at site of second toe amputation, serosanguineous drainage noted, no purulence, or signs of infection. The wound does open deeply. MDM: Patient seen and examined for rapid initial assessment. Vital signs reviewed. A comprehensive ED assessment and evaluation of the patient, analysis of test results and completion of the medical decision making process will be conducted by additional ED providers. *Note is created using voice recognition software and may contain spelling, syntax or grammatical errors. TRAVEL OUTSIDE OF THE [place] IN LAST 30 DAYS: No - Related Data Allergies/Adverse Reactions: No Known Allergies Allergy (Verified 09/25/18 12:38) Past Medical History - Social History Chew tobacco use (# tins/day): No Frequency of alcohol use: Occasional Drug Abuse: None - Past Medical History Cardiac Medical History: Reports: Hx Heart Attack - patient states "it was years ago", Hx Hypercholesterolemia, Hx Hypertension Endocrine Medical History: Reports: Hx Diabetes Mellitus Type 2 Renal/ Medical History: Denies: Hx Peritoneal Dialysis Psychiatric Medical History: Reports: Hx Bipolar Disorder Past Surgical History: Reports: Hx Cardiac Surgery - electrophysiology, Hx Orthopedic Surgery - right knee, Other - Cardiac ablation, EP studies 20 years ago Mirtha, video rental clerk Dr. Tirado - Immunizations Hx Diphtheria, Pertussis, Tetanus Vaccination: Yes - UTD History of Influenza Vaccine for 08/2017 - 01/2018 Season: Unknown Physical Exam - Vital signs Vitals: Temp Pulse Resp BP Pulse Ox 98.3 F 102 H 18 155/83 H 100 09/25/18 12:40 09/25/18 12:40 09/25/18 12:40 09/25/18 12:40 09/25/18 12:40 Course - Vital Signs Vital signs: Temp Pulse Resp BP Pulse Ox 98.3 F 102 H 18 155/83 H 100 09/25/18 12:40 09/25/18 12:40 09/25/18 12:40 09/25/18 12:40 09/25/18 12:40 Doctor's Discharge - Discharge Referrals: DAVID SUN MD [Primary Care Provider] - Follow up as needed
--- NOTE | 2018-09-25 13:59 | ER Document Report ---
HPI - HPI Patient complains to provider of: Wound recheck Onset: Yesterday Onset/Duration: Worse Quality of pain: Achy Pain Level: 3 Context: Patient is status post a left second toe amputation. Patient had his sutures removed from the wound 2 days ago. Patient states that he was walking around and noticed that the sutures popped and the wound opened up yesterday. Patient was uncertain if he needed to have the wound resutured. Patient denies any fever or any other problems. Associated Symptoms: Other - Wound dehiscence Exacerbated by: Walking Relieved by: Denies Similar symptoms previously: No Recently seen / treated by doctor: Yes - ROS ROS below otherwise negative: Yes Systems Reviewed and Negative: Yes All other systems reviewed and negative - GASTROINTESTINAL Gastrointestinal: DENIES: Nausea - REPRODUCTIVE Reproductive: DENIES: : - MUSCULOSKELETAL Musculoskeletal: REPORTS: Extremity pain - DERM Skin Problems: Surgical Wound, Diabetic Past Medical History - General Information source: Patient - Social History Smoking Status: Current Every Day Smoker Chew tobacco use (# tins/day): No Smoking Education Provided: Yes Frequency of alcohol use: Occasional Drug Abuse: None Occupation: none Lives with: Family Family History: Reviewed & Not Pertinent, Other - Father admitted with pneumonia Patient has suicidal ideation: No Patient has homicidal ideation: No - Past Medical History Cardiac Medical History: Reports: Hx Heart Attack - patient states "it was years ago", Hx Hypercholesterolemia, Hx Hypertension Endocrine Medical History: Reports: Hx Diabetes Mellitus Type 2 Renal/ Medical History: Denies: Hx Peritoneal Dialysis Psychiatric Medical History: Reports: Hx Bipolar Disorder Past Surgical History: Reports: Hx Cardiac Surgery - electrophysiology, Hx Orthopedic Surgery - right knee, Other - Cardiac ablation, EP studies 20 years ago Mirtha, financial sales professional Dr. Tirado - Immunizations Hx Diphtheria, Pertussis, Tetanus Vaccination: Yes - UTD Vertical Provider Document - CONSTITUTIONAL Agree With Documented VS: Yes Exam Limitations: No Limitations General Appearance: WD/WN, No Apparent Distress - INFECTION CONTROL TRAVEL OUTSIDE OF THE [place] IN LAST 30 DAYS: No - HEENT HEENT: Atraumatic, Normocephalic - NECK Neck: Normal Inspection - RESPIRATORY Respiratory: No Respiratory Distress - CARDIOVASCULAR Pulses: Normal: Dorsalis pedis - MUSCULOSKELETAL/EXTREMETIES Musculoskeletal/Extremeties: MAEW, Tender - Tenderness left foot, Edema - NEURO Level of Consciousness: Awake, Alert, Appropriate Motor/Sensory: No Motor Deficit - DERM Integumentary: Warm, Dry Notes: Patient with postsurgical room wound to left second metatarsal with wound dehiscence and wound edges appear macerated and moist. No significant erythema , no purulent drainage Course - Re-evaluation Re-evalutation: 09/25/18 14:00 Dr. Encinas to bedside for evaluation. Recommends wet-to-dry dressings and have patient follow-up in the office next week as planned. - Vital Signs Vital signs: Temp Pulse Resp BP Pulse Ox 98.3 F 102 H 18 155/83 H 100 09/25/18 12:40 09/25/18 12:40 09/25/18 12:40 09/25/18 12:40 09/25/18 12:40 Discharge - Discharge Clinical Impression: Encounter for wound re-check Condition: Stable Disposition: HOME, SELF-CARE Additional Instructions: Return immediately for any new or worsening symptoms Followup with your primary care provider, call tomorrow to make a followup appointment Follow-up with a surgeon this week as planned. Daily wound care involving wet-to-dry dressings Referrals: DAVID SUN MD [NO LOCAL MD] - Follow up as needed [facility] [Provider Group] - 09/27/18
[2018-09-25 14:34] VITALS: BP 136/93
--- NOTE | 2018-09-25 20:08 | PDOC CONSULTATION ---
Consultation Consult Date: 09/25/18 Consult reason:: Left foot wound History of Present Illness Admission Date/PCP: JEANNINE HARDY PA-C History of Present Illness: MARÍA RHOADES is a 58 year old male seen at the request of the emergency room physician. This is a 58-year-old male that is several weeks status post left second toe amputation. The patient is a diabetic. He reports that he was healing well, until today. He reports that his wound has opened up and is draining clear fluid. He denies any erythema, edema, purulence, fevers, chills , chest pain, shortness of breath, nominal pain, nausea, vomiting, malaise, fatigue, or orthostasis. The patient reports that his foot is not painful. Past Medical History Cardiac Medical History: Reports: Myocardial Infarction - patient states "it was years ago", Hyperlipidema, Hypertension Endocrine Medical History: Reports: Diabetes Mellitus Type 2 Psychiatric Medical History: Reports: Bipolar Disorder Past Surgical History Past Surgical History: Reports: Orthopedic Surgery - right knee, Other - Cardiac ablation. Left second toe amputation. Social History Lives with: Family Smoking Status: Current Every Day Smoker Hx Recreational Drug Use: No Hx Prescription Drug Abuse: No Family History Family History: Reviewed & Not Pertinent, Other - Father admitted with pneumonia Parental Family History Reviewed: Yes Children Family History Reviewed: Yes Sibling(s) Family History Reviewed.: Yes Medication/Allergy Home Medications: Metformin HCl [Glucophage 500 mg Tablet] 500 mg PO BID 08/31/18 Propranolol HCl [Inderal 20 mg Tablet] 20 mg PO Q12 08/31/18 Allergies/Adverse Reactions: No Known Allergies Allergy (Verified 09/25/18 12:38) Review of Systems Constitutional: ABSENT: anorexia, chills, fatigue, fever(s) Eyes: ABSENT: visual disturbances Nose, Mouth, and Throat: ABSENT: sore throat Cardiovascular: ABSENT: chest pain, palpitations Respiratory: ABSENT: cough, dyspnea Gastrointestinal: ABSENT: abdominal pain, constipation, heartburn, nausea, vomiting Musculoskeletal: ABSENT: back pain Integumentary: PRESENT: wounds - Left foot Neurological: ABSENT: abnormal movements, abnormal speech, confusion, convulsions, dizziness Psychiatric: ABSENT: anxiety, depression Endocrine: ABSENT: cold intolerance, heat intolerance Hematologic/Lymphatic: ABSENT: easy bleeding, easy bruising Physical Exam Vital Signs: Temp Pulse Resp BP Pulse Ox 98.3 F 90 16 136/93 H 100 09/25/18 12:40 09/25/18 14:33 09/25/18 14:33 09/25/18 14:33 09/25/18 14:33 Intake & Output 09/24/18 09/25/18 09/26/18 06:59 06:59 06:59 Weight 132.8 kg General appearance: PRESENT: obese Head exam: PRESENT: atraumatic, normocephalic Eye exam: PRESENT: EOMI, PERRLA. ABSENT: scleral icterus Mouth exam: PRESENT: moist, neck supple Teeth exam: PRESENT: poor dentation Neck exam: ABSENT: meningismus, tenderness, thyromegaly, tracheal deviation Respiratory exam: PRESENT: chest wall tenderness. ABSENT: clear to auscultation rufina Cardiovascular exam: PRESENT: RRR Pulses: PRESENT: normal radial pulses Vascular exam: PRESENT: normal capillary refill. ABSENT: pallor GI/Abdominal exam: PRESENT: soft. ABSENT: distended, rebound, tenderness Rectal exam: PRESENT: deferred Extremities exam: PRESENT: other - Open wound to the left foot. No active purulence. Minimal granulation present. No erythema Neurological exam: PRESENT: alert, awake, oriented to person, oriented to place , oriented to time, oriented to situation, CN II-XII grossly intact Psychiatric exam: ABSENT: agitated, anxious, depressed Focused psych exam: ABSENT: delusional Skin exam: ABSENT: cyanosis, jaundice Assessment & Plan - Diagnosis (1) Open wound of left foot Qualifiers: Encounter type: initial encounter Qualified Code(s): S91.302A - Unspecified open wound, left foot, initial encounter Is this a current diagnosis for this admission?: Yes - Plan Summary Plan Summary: This is a 58-year-old male with an open wound to the left foot. This developed today. Patient reports clear drainage, but denies any purulence or erythema. I have encouraged the patient to minimize walking on the foot. He should perform damp dressing changes twice daily and as needed. He should wash the foot with soap and water to keep it clean. I do not see any current need for antibiotics. Follow-up with me in the office in 1 week.
== END 2018-09-25 14:35 | disposition home or self-care (01) ==
LOC: ER 12:37
DX: T87.81 Dehiscence of amputation stump (principal); Y83.5 Amputation of limb(s) as the cause of abnormal reaction of the patient, or of later complication, without mention of misadventure at the time of the procedure; F17.200 Nicotine dependence, unspecified, uncomplicated; E11.9 Type 2 diabetes mellitus without complications; I10 Essential (primary) hypertension; Z79.84 Long term (current) use of oral hypoglycemic drugs; Z79.899 Other long term (current) drug therapy; Z89.422 Acquired absence of other left toe(s)
CPT/HCPCS: 99283

== ENCOUNTER → 2018-10-14 | Outpatient (CLI) | payer MEDICARE, MEDICAID ==
[2018-10-14 12:29] LABS: ABSOLUTE BASOPHILS # (AUTO) 0.3 10^3/uL (0.0-0.2); ABSOLUTE EOSINOPHILS # (AUTO) 0.1 10^3/uL (0.0-0.6); ABSOLUTE LYMPHOCYTES (AUTO) 3.3 10^3/uL (0.5-4.7); ABSOLUTE MONOCYTES (AUTO) 0.8 10^3/uL (0.1-1.4); ABSOLUTE NEUT (AUTO) 9.2 10^3/uL (1.7-8.2); BASOPHILS % (AUTO) 2.1 % (0-2); EOSINOPHILS % (AUTO) 0.5 % (0-6); HEMATOCRIT 39.2 % (37.9-51.0); HEMOGLOBIN 12.8 g/dL (13.5-17.0); LYMPHOCYTES % (AUTO) 23.8 % (13-45); MEAN CORPUSCULAR HEMOGLOBIN 19.8 pg (27.0-33.4); MEAN CORPUSCULAR HGB CONC 32.6 g/dL (32.0-36.0); MEAN CORPUSCULAR VOLUME 61 fl (80-97); MONOCYTES % (AUTO) 6.1 % (3-13); PLATELET COUNT 450 10^3/uL (150-450); RED BLOOD COUNT 6.45 10^6/uL (4.35-5.55); RED CELL DISTRIBUTION WIDTH 16.2 % (11.5-14.0); SEGMENTED NEUTROPHILS % (AUTO) 67.5 % (42-78); TOTAL CELLS COUNTED % (AUTO) 100 %; WHITE BLOOD COUNT 13.6 10^3/uL (4.0-10.5)
[2018-10-14 12:50] LABS: ALANINE AMINOTRANSFERASE 13 U/L (21-72); ALBUMIN 4.1 g/dL (3.5-5.0); ALKALINE PHOSPHATASE 134 U/L (38-126); ANION GAP 17 (5-19); ASPARTATE AMINO TRANSFERASE 23 U/L (17-59); BILIRUBIN,DIRECT 0.3 mg/dL (0.0-0.4); BILIRUBIN,TOTAL 0.9 mg/dL (0.2-1.3); BLOOD UREA NITROGEN 10 mg/dL (7-20); CALCIUM 9.9 mg/dL (8.4-10.2); CARBON DIOXIDE 24 mmol/L (22-30); CHLORIDE 99 mmol/L (98-107); GLUCOSE 103 mg/dL (75-110); POTASSIUM 4.4 mmol/L (3.6-5.0); SODIUM 139.7 mmol/L (137-145); TOTAL PROTEIN 7.9 g/dL (6.3-8.2)
[2018-10-14 12:57] LABS: ANISOCYTOSIS 1+; HYPOCHROMASIA SLIGHT; PLATELET COMMENT ADEQUATE; POLYCHROMASIA SLIGHT; ROULEAUX SLIGHT; TOXIC GRANULATION SLIGHT
[2018-10-14 12:58] LABS: OVALOCYTES 1+; POIKILOCYTOSIS 1+
[2018-10-14 13:12] LABS: ERYTHROCYTE SEDIMENTATION RATE 49 mm/hr (0-20)
== END ==
LOC: OD 11:15
PROVIDERS: ATTEND Preventive Medicine Undersea and Hyperbaric Medicine
DX: L97.524 Non-pressure chronic ulcer of other part of left foot with necrosis of bone (principal); E11.621 Type 2 diabetes mellitus with foot ulcer
CPT/HCPCS: 36415; 80053; 83036; 85025; 85652; 86140

== ENCOUNTER → 2018-10-14 | Outpatient (CLI) | payer MEDICARE, MEDICAID ==
--- NOTE | 2018-10-14 10:54 | RADIOLOGY REPORT (SQ) ---
EXAM DESCRIPTION: ARTERIAL LOWER EXTREM BILAT COMPLETED DATE/TIME: 10/14/2018 10:38 am REASON FOR STUDY: ULCER LLE L97.524 NON-PRS CHRONIC ULCER OTH PRT LEFT FOOT W NECROSIS O COMPARISON: Left foot films 08/30/2018 TECHNIQUE: Dynamic and static hall scale and color images acquired of the lower extremity arteries. Additional selected spectral images recorded. ABIs recorded. LIMITATIONS: None. FINDINGS: RIGHT LEG: ABIS: Unable to obtain, distal vessels are noncompressible INFLOW ARTERIES: Normal, no obstruction evident. FEMORAL ARTERIES:Multiphasic waveforms. Normal, no velocity elevation to suggest focal stenosis. Norm al color Doppler evaluation. No aneurysm. POPLITEAL ARTERY:Multiphasic waveforms. Normal, no velocity elevation to suggest focal stenosis. Norm al color Doppler evaluation. No aneurysm. PATENT TIBIOPERONEAL TRUNK AND 3 VESSEL RUNOFF: Yes, normal vessels. TBI: Not performed. OTHER: No other significant finding. LEFT LEG: ABIS: Normal, over 1.0. INFLOW ARTERIES: Normal, no obstruction evident. FEMORAL ARTERIES:Multiphasic waveforms. Normal, no velocity elevation to suggest focal stenosis. Norm al color Doppler evaluation. No aneurysm. POPLITEAL ARTERY:Multiphasic waveforms. Normal, no velocity elevation to suggest focal stenosis. Norm al color Doppler evaluation. No aneurysm. PATENT TIBIOPERONEAL TRUNK AND 3 VESSEL RUNOFF: Yes, normal vessels. TBI: Not performed. OTHER: No other significant finding. IMPRESSION: NORMAL BILATERAL LOWER EXTREMITY ARTERIAL DOPPLER Unable to obtain right MARIO. Normal left MARIO. COMMENT: [facility] NORMAL: Greater than 1.0 MINIMAL DISEASE: 0.9 to 1.0 CLAUDICATION: 0.5 to 0.9 SEVERE ARTERIAL DISEASE: Less than 0.5 [facility] NORMAL: Greater than 1.0 (1.2 If Heavy Calcifications) NORMAL TO MILD ISCHEMIA: 0.8 to 1.0 MODERATE ISCHEMIA: 0.4 to 0.8 SEVERE ISCHEMIA: Less than 0.4 TECHNICAL DOCUMENTATION: JOB ID: [id number]- All Rights Reserved Reading location - IP/workstation name: [email or web address]
--- NOTE | 2018-10-14 10:56 | RADIOLOGY REPORT (SQ) ---
EXAM DESCRIPTION: VENOUS REFLUX COMPLETED DATE/TIME: 10/14/2018 10:38 am REASON FOR STUDY: ULCER LLE L97.524 NON-PRS CHRONIC ULCER OTH PRT LEFT FOOT W NECROSIS O COMPARISON: None. TECHNIQUE: Multiple real-time grayscale sonographic images were obtained for evaluation of the right and left lower extremity. Doppler and duplex evaluation of the venous structures was performed. LIMITATIONS: None. FINDINGS: The right and left common femoral, superficial femoral, popliteal and infrapopliteal veins are patent with normal response to compression and augmentation maneuvers. Right greater saphenous vein: No reflux Right small saphenous vein: Minimal reflux proximal right lesser saphenous vein, 1,525 milliseconds. Vein measures 8 mm in diameter Left greater saphenous vein: No reflux Left small saphenous vein: No reflux OTHER: No solid or cystic masses or other abnormal findings. IMPRESSION: Minimal reflux, proximal right lesser saphenous vein in the calf TECHNICAL DOCUMENTATION: JOB ID: [id number] [employer]- All Rights Reserved Reading location - IP/workstation name: [email or web address]
--- NOTE | 2018-10-14 10:58 | RADIOLOGY REPORT (SQ) ---
EXAM DESCRIPTION: CHEST 2 VIEWS COMPLETED DATE/TIME: 10/14/2018 10:27 am REASON FOR STUDY: PNEUMOTHORAX (J93.9), NON PU L FOOT (L97.524) COMPARISON: Two-view chest 03/15/2015 EXAM PARAMETERS: NUMBER OF VIEWS: two views TECHNIQUE: Digital Frontal and Lateral radiographic views of the chest acquired. RADIATION DOSE: NA LIMITATIONS: none FINDINGS: LUNGS AND PLEURA: No opacities, masses or pneumothorax. No pleural effusion. MEDIASTINUM AND HILAR STRUCTURES: No masses or contour abnormalities. HEART AND VASCULAR STRUCTURES: Heart normal size. No evidence for failure. BONES: No acute findings. HARDWARE: None in the chest. OTHER: No other significant finding. IMPRESSION: NO ACUTE RADIOGRAPHIC FINDING IN THE CHEST. TECHNICAL DOCUMENTATION: JOB ID: [id number] [employer]- All Rights Reserved Reading location - IP/workstation name: [email or web address]
--- NOTE | 2018-10-14 12:40 | RADIOLOGY REPORT (SQ) ---
EXAM DESCRIPTION: FOOT LEFT COMPLETE COMPLETED DATE/TIME: 10/14/2018 10:27 am REASON FOR STUDY: PNEUMOTHORAX (J93.9), NON PU L FOOT (L97.524) L97.524 NON-PRS CHRONIC ULCER OTH P RT LEFT FOOT W NECROSIS O COMPARISON: 08/30/2018 NUMBER OF VIEWS: Three views. TECHNIQUE: AP, lateral and oblique radiographic images acquired of the left foot. LIMITATIONS: None. FINDINGS: There has been amputation of the 2nd phalanx and distal metatarsal shaft. There is active periosteal reaction in the metatarsal stump. There is demineralization of the medial head of the 3r d metatarsal. No foreign body identified. IMPRESSION: Osteomyelitis head of 3rd metatarsal and 2nd metatarsal stump. TECHNICAL DOCUMENTATION: JOB ID: [id number] [employer]- All Rights Reserved Reading location - IP/workstation name: [email or web address]
== END ==
LOC: SP 08:08
PROVIDERS: ATTEND Preventive Medicine Undersea and Hyperbaric Medicine
DX: J93.9 Pneumothorax, unspecified (principal); L97.524 Non-pressure chronic ulcer of other part of left foot with necrosis of bone; E11.621 Type 2 diabetes mellitus with foot ulcer
CPT/HCPCS: 71046; 93922; 93925; 93970

== ENCOUNTER 2018-10-26 10:58 | Inpatient (IN) | payer MEDICARE, MEDICAID ==
--- NOTE | 2018-10-26 11:41 | ER Document Report ---
ED Medical Screen (RME) - General Chief Complaint: Skin Problem Stated Complaint: FOOT PAIN Time Seen by Provider: 10/26/18 11:34 TRAVEL OUTSIDE OF THE [place] IN LAST 30 DAYS: No - Related Data Allergies/Adverse Reactions: No Known Allergies Allergy (Verified 09/25/18 12:38) Past Medical History - Social History Chew tobacco use (# tins/day): No Drug Abuse: None - Past Medical History Cardiac Medical History: Reports: Hx Heart Attack - patient states "it was years ago", Hx Hypercholesterolemia, Hx Hypertension Endocrine Medical History: Reports: Hx Diabetes Mellitus Type 2 Renal/ Medical History: Denies: Hx Peritoneal Dialysis Psychiatric Medical History: Reports: Hx Bipolar Disorder Past Surgical History: Reports: Hx Cardiac Surgery - electrophysiology, Hx Orthopedic Surgery - right knee, Other - Cardiac ablation. Left second toe amputation. - Immunizations Hx Diphtheria, Pertussis, Tetanus Vaccination: Yes - UTD History of Influenza Vaccine for 08/2017 - 01/2018 Season: Unknown Physical Exam - Vital signs Vitals: Temp Pulse Resp BP Pulse Ox 98.0 F 91 20 143/90 H 100 10/26/18 11:04 10/26/18 11:04 10/26/18 11:04 10/26/18 11:04 10/26/18 11:04 Course - Re-evaluation Re-evalutation: 10/26/18 11:41 58-year-old man status post resection of his left second toe. 3 presents for evaluation and consideration of amputation of his left third toe as there is known osteomyelitis there. He believes that Dr. Encinas is to help him have it amputated. I have seen and performed a rapid medical screening examination for this patient. They will require further investigation and disposition determination by a second provider . - Vital Signs Vital signs: Temp Pulse Resp BP Pulse Ox 98.0 F 91 20 143/90 H 100 10/26/18 11:04 10/26/18 11:04 10/26/18 11:04 10/26/18 11:04 10/26/18 11:04 Doctor's Discharge - Discharge Referrals: ZURDO REID DPM [Primary Care Provider] - Follow up as needed
[2018-10-26 12:34] LABS: ABSOLUTE BASOPHILS # (AUTO) 0.1 10^3/uL (0.0-0.2); ABSOLUTE EOSINOPHILS # (AUTO) 0.2 10^3/uL (0.0-0.6); ABSOLUTE LYMPHOCYTES (AUTO) 3.2 10^3/uL (0.5-4.7); ABSOLUTE MONOCYTES (AUTO) 0.8 10^3/uL (0.1-1.4); ABSOLUTE NEUT (AUTO) 7.9 10^3/uL (1.7-8.2); BASOPHILS % (AUTO) 0.7 % (0-2); HEMOGLOBIN 12.7 g/dL (13.5-17.0); LYMPHOCYTES % (AUTO) 26.3 % (13-45); MEAN CORPUSCULAR HEMOGLOBIN 19.6 pg (27.0-33.4); MEAN CORPUSCULAR HGB CONC 32.6 g/dL (32.0-36.0); MEAN CORPUSCULAR VOLUME 60 fl (80-97); MONOCYTES % (AUTO) 6.4 % (3-13); PLATELET COUNT 322 10^3/uL (150-450); RED BLOOD COUNT 6.51 10^6/uL (4.35-5.55); RED CELL DISTRIBUTION WIDTH 16.5 % (11.5-14.0); SEGMENTED NEUTROPHILS % (AUTO) 64.6 % (42-78); TOTAL CELLS COUNTED % (AUTO) 100 %; WHITE BLOOD COUNT 12.2 10^3/uL (4.0-10.5)
[2018-10-26 12:58] LABS: ALANINE AMINOTRANSFERASE 10 U/L (21-72); ALBUMIN 3.7 g/dL (3.5-5.0); ALKALINE PHOSPHATASE 83 U/L (38-126); ANION GAP 13 (5-19); ASPARTATE AMINO TRANSFERASE 17 U/L (17-59); BILIRUBIN,DIRECT 0.2 mg/dL (0.0-0.4); BILIRUBIN,TOTAL 0.4 mg/dL (0.2-1.3); BLOOD UREA NITROGEN 9 mg/dL (7-20); C-REACTIVE PROTEIN 12.9 mg/L (<10.0); CALCIUM 9.6 mg/dL (8.4-10.2); CARBON DIOXIDE 26 mmol/L (22-30); CHLORIDE 104 mmol/L (98-107); GLUCOSE 106 mg/dL (75-110); POTASSIUM 4.2 mmol/L (3.6-5.0); SODIUM 142.7 mmol/L (137-145)
--- NOTE | 2018-10-26 13:09 | RADIOLOGY REPORT (SQ) ---
EXAM DESCRIPTION: TOE LEFT COMPLETED DATE/TIME: 10/26/2018 12:50 pm REASON FOR STUDY: toe pain, osteo needs amputated COMPARISON: 10/14/2018 NUMBER OF VIEWS: Three views left foot and toes. LIMITATIONS: None. FINDINGS: Normal bone density. Status post 2nd toe amputation, as before. Relatively unchanged resorption of the 2nd metatarsal hea d and neck. Mild progressive callus noted here on today's study. Progressive destruction of the 3rd metatarsal head and base of the proximal phalanx of the 3rd toe no iram. OTHER: No other significant finding. IMPRESSION: 1. Progressive destruction at the 3rd toe MP joint consistent with osteomyelitis. 2. Stable loss of bone at the 2nd metatarsal head status post 2nd toe amputation. Further callus has de veloped along the amputation site. TECHNICAL DOCUMENTATION: JOB ID: [id number] Reading location - IP/workstation name: [email or web address]
[2018-10-26 13:14] LABS: ERYTHROCYTE SEDIMENTATION RATE 19 mm/hr (0-20)
[2018-10-26 13:15] LABS: HYPOCHROMASIA 2+; OVALOCYTES 1+; PLATELET COMMENT ADEQUATE; PLATELET GIANT PRESENT; PLATELET LARGE PRESENT; POIKILOCYTOSIS 1+; TARGET CELLS SLIGHT
--- NOTE | 2018-10-26 13:40 | ER Document Report ---
ED Extremity Problem, Lower - General Chief Complaint: Skin Problem Stated Complaint: FOOT PAIN Time Seen by Provider: 10/26/18 11:34 Notes: Infected toe. Patient had an amputation of the second toe of his left foot in August. Subsequently, he has been going to the wound clinic. He has developed an infection in the middle toe and for the past 6 days has been on oral antibiotics at home without any benefit. He was advised by the wound clinic to come here to be admitted and take care of his toe. Denies fever. Non -insulin-dependent diabetic. High cholesterol. TRAVEL OUTSIDE OF THE [place] IN LAST 30 DAYS: No - Related Data Allergies/Adverse Reactions: No Known Allergies Allergy (Verified 09/25/18 12:38) Past Medical History - Social History Smoking Status: Current Every Day Smoker Chew tobacco use (# tins/day): No Drug Abuse: None Family History: Reviewed & Not Pertinent, Other - Father admitted with pneumonia Patient has suicidal ideation: No Patient has homicidal ideation: No - Past Medical History Cardiac Medical History: Reports: Hx Heart Attack - patient states "it was years ago", Hx Hypercholesterolemia, Hx Hypertension, Other - Ablation therapy. Endocrine Medical History: Reports: Hx Diabetes Mellitus Type 2 Psychiatric Medical History: Reports: Hx Bipolar Disorder Past Surgical History: Reports: Hx Cardiac Surgery - electrophysiology, Hx Orthopedic Surgery - right knee, Other - Cardiac ablation. Left second toe amputation. - Immunizations Hx Diphtheria, Pertussis, Tetanus Vaccination: Yes - UTD Review of Systems - Review of Systems Notes: REVIEW OF SYSTEMS: CONSTITUTIONAL : Denies fever. EENT: Denies eye, ear, nose or mouth or throat pain or other symptoms. CARDIOVASCULAR: Denies chest pain. RESPIRATORY: Denies cough, chest congestion, or shortness of breath. GASTROINTESTINAL: Denies abdominal pain or nausea, vomiting, or diarrhea. GENITOURINARY: Denies difficulty or painful urinating, urinary frequency, blood in urine. MUSCULOSKELETAL: Patient has had the second toe of her left foot amputated. Now , she has soft tissue swelling as well as drainage around open creases in her skin around the middle toe of the left foot. It is apparent that there is significant soft tissue infection present. Denies back or neck pain. Denies joint pain or swelling. SKIN: Denies rash or skin lesions. NEUROLOGICAL: Denies LOC or altered mental status. Denies headache. Denies sensory loss or motor deficits. ALL OTHER SYSTEMS REVIEWED AND NEGATIVE. Physical Exam - Vital signs Vitals: Temp Pulse Resp BP Pulse Ox 98.0 F 91 20 143/90 H 100 10/26/18 11:04 10/26/18 11:04 10/26/18 11:04 10/26/18 11:04 10/26/18 11:04 Interpretation: Normal Notes: PHYSICAL EXAMINATION: GENERAL: Well-appearing, in no acute distress. HEAD: Atraumatic, normocephalic. EYES: Pupils equal round and reactive to light, extraocular movements intact. ENT: oropharynx clear without exudates. Moist mucous membranes. NECK: Normal range of motion, supple. LUNGS: Breath sounds clear and equal bilaterally. HEART: Regular rate and rhythm without murmurs. ABDOMEN: Soft, nontender. No guarding or rebound. No masses. BACK: No tenderness throughout entire back. EXTREMITIES: Patient's left foot is missing the second toe. Additionally, there is weeping and oozing from the soft tissue swelling around the middle toe. Otherwise, normal range of motion without pain. NEUROLOGICAL: Normal speech, normal gait. Normal sensory, motor, and reflex exams. Awake, alert, and oriented x3. Cranial nerves normal. PSYCH: Normal mood, normal affect. SKIN: Warm, dry, no rashes. Course - Re-evaluation Re-evalutation: 10/26/18 18:[address] Holt, the surgical list on duty who requested that the patient be admitted to the hospital service. I spoke with the hospitalist service and they agreed to admit the patient for surgery tomorrow. - Vital Signs Vital signs: Temp Pulse Resp BP Pulse Ox 97.5 F 81 17 143/92 H 100 10/26/18 18:31 10/26/18 18:31 10/26/18 18:31 10/26/18 18:31 10/26/18 18:31 - Laboratory Result Diagrams: 10/26/18 12:00 10/26/18 12:00 Laboratory results interpreted by me: 10/26/18 10/26/18 12:00 12:00 WBC 12.2 H RBC 6.51 H Hgb 12.7 L MCV 60 L MCH 19.6 L RDW 16.5 H ALT 10 L C-Reactive Protein 12.9 H - Diagnostic Test Radiology reviewed: Image reviewed, Reports reviewed - X-ray of the left foot shows osteomyelitis of the distal middle toe. Discharge - Discharge Clinical Impression: Toe osteomyelitis, left, Type 2 diabetes mellitus with left diabetic foot infection Condition: Stable Disposition: ADMITTED INPATIENT Admitting Provider: Hospitalist Unit Admitted: Telemetry
[2018-10-26] MEDS ORDERED: NORMAL SALINE 1000 ML 1,000 ML IV PRN (15:46)
[2018-10-26] MEDS ORDERED: GLUCAGON,HUMAN RECOMB 1 MG INJ IM PRN (15:49)
[2018-10-26] MEDS ORDERED: DEXTROSE 50%-WATER 25 GM/50 ML DISP.SYRIN IV PRN ×2 (15:49)
[2018-10-26] MEDS ORDERED: DEXTROSE 40% GEL 15 GM TUBE PO PRN ×2 (15:49)
[2018-10-26] MEDS ORDERED: INSULIN LISPRO 100 UNIT/ML 3 ML VIAL SUBCUT PRN (15:49)
[2018-10-26] MEDS ORDERED: VANCOMYCIN HCL 1,500 MG in DEXTROSE 5%-WATER 250 ML IV ONE (16:00)
[2018-10-26 16:12] LABS: INTERNATIONAL RATION (INR) 0.97; PROTHROMBIN TIME 13.3 SEC (11.4-15.4)
--- NOTE | 2018-10-26 16:16 | PDOC H&P ---
History of Present Illness Admission Date/PCP: ZURDO REID DPM 10/26/2018 Patient complains of: 58-year-old male came with complaints of left foot pain History of Present Illness: MARÍA RHOADES is a 58 year old male Came to the emergency room today with complaints of left foot pain and swelling for the last several days. He had a amputation of the second toe on August 31 after that followed up with wound care center and he was recently started on antibiotics for the swelling discharge and redness of the medial toe he completed 6 days of antibiotics the symptoms are not improving so he was advised to come to the emergency room for further evaluation in the ER is complaining of pain scale of 7 x 10 complaining of pertinent purulent discharge from the wound site the left foot x-rays was done found to have indicating osteomyelitis surgery was consulted the planning to take him to the OR tomorrow. Dawkins denies any previous history of similar problems. She has history of diabetes mellitus and hypertension bipolar disorder. Past Medical History Cardiac Medical History: Reports: Myocardial Infarction - patient states "it was years ago", Hyperlipidema, Hypertension, Other - Bipolar disorder Pulmonary Medical History: Reports: None Endocrine Medical History: Reports: Diabetes Mellitus Type 2 Renal/ Medical History: Reports: None Malignancy Medical History: Reports: None GI Medical History: Reports: None Musculoskeltal Medical History: Reports: Gout - Patient has right ACL surgery in 1999. Psychiatric Medical History: Reports: None, Bipolar Disorder Past Surgical History Past Surgical History: Reports: Orthopedic Surgery - right knee, Other - Cardiac ablation. Left second toe amputation. Social History Smoking Status: Current Every Day Smoker Hx Recreational Drug Use: No Hx Prescription Drug Abuse: No Family History Family History: Reviewed & Not Pertinent, DM, Other - Father admitted with pneumonia Parental Family History Reviewed: Yes Children Family History Reviewed: Yes Sibling(s) Family History Reviewed.: Yes Medication/Allergy Home Medications: Metformin HCl [Glucophage 500 mg Tablet] 500 mg PO BID 08/31/18 Propranolol HCl [Inderal 20 mg Tablet] 20 mg PO Q12 08/31/18 Allergies/Adverse Reactions: No Known Allergies Allergy (Verified 09/25/18 12:38) Review of Systems Constitutional: ABSENT: chills, fever(s), night sweats Eyes: ABSENT: visual disturbances Ears: ABSENT: hearing changes Cardiovascular: ABSENT: chest pain, dyspnea on exertion, edema, orthropnea, palpitations Respiratory: ABSENT: cough, hemoptysis Gastrointestinal: ABSENT: abdominal pain, constipation, diarrhea, hematemesis, hematochezia, nausea, vomiting Musculoskeletal: ABSENT: joint swelling Integumentary: PRESENT: wounds - Patient has chronic wound in the left lower extremity. Neurological: ABSENT: abnormal gait, abnormal speech, confusion, dizziness, focal weakness, syncope Physical Exam Vital Signs: Temp Pulse Resp BP Pulse Ox 98.0 F 91 20 143/90 H 100 10/26/18 11:04 10/26/18 11:04 10/26/18 11:04 10/26/18 11:04 10/26/18 11:04 Intake & Output 10/25/18 10/26/18 10/27/18 06:59 06:59 06:59 Weight 143.6 kg General appearance: PRESENT: mild distress Head exam: PRESENT: atraumatic Eye exam: PRESENT: PERRLA Neck exam: ABSENT: carotid bruit, JVD, lymphadenopathy, thyromegaly Respiratory exam: PRESENT: clear to auscultation rufina. ABSENT: rales, rhonchi, wheezes Cardiovascular exam: PRESENT: RRR. ABSENT: diastolic murmur, rubs, systolic murmur GI/Abdominal exam: PRESENT: normal bowel sounds, soft. ABSENT: distended, guarding, mass, organolmegaly, rebound, tenderness Extremities exam: PRESENT: other - Left foot examination proper absent second toe third toe was looks infected swollen and erythematous. Purulent discharge from the wound site. Neurological exam: PRESENT: alert, awake, oriented to person, oriented to place , oriented to time, oriented to situation, CN II-XII grossly intact. ABSENT: motor sensory deficit Psychiatric exam: PRESENT: appropriate affect, normal mood. ABSENT: homicidal ideation, suicidal ideation Results Laboratory Results: 10/26/18 12:00 10/26/18 12:00 10/26/18 10/26/18 12:00 12:00 WBC 12.2 H RBC 6.51 H Hgb 12.7 L Hct 39.0 MCV 60 L MCH 19.6 L MCHC 32.6 RDW 16.5 H Plt Count 322 Seg Neutrophils % 64.6 Lymphocytes % 26.3 Monocytes % 6.4 Eosinophils % 2.0 Basophils % 0.7 Absolute Neutrophils 7.9 Absolute Lymphocytes 3.2 Absolute Monocytes 0.8 Absolute Eosinophils 0.2 Absolute Basophils 0.1 Sodium 142.7 Potassium 4.2 Chloride 104 Carbon Dioxide 26 Anion Gap 13 BUN 9 Creatinine 0.72 Est GFR ( Amer) > 60 Est GFR (Non-Af Amer) > 60 Glucose 106 Calcium 9.6 Total Bilirubin 0.4 AST 17 ALT 10 L Alkaline Phosphatase 83 C-Reactive Protein 12.9 H Total Protein 7.0 Albumin 3.7 Impressions: Toe X-Ray 10/26/18 11:40 IMPRESSION: 1. Progressive destruction at the 3rd toe MP joint consistent with osteomyelitis. 2. Stable loss of bone at the 2nd metatarsal head status post 2nd toe amputation. Further callus has developed along the amputation site. Assessment & Plan - Diagnosis (1) Toe osteomyelitis, left Is this a current diagnosis for this admission?: Yes Plan: 10/26/2018 plan for the osteomyelitis is surgical consult patient is going to be n.p.o. from midnight probable surgery tomorrow wound cultures were requested blood cultures already done . I am going to start him on IV Zosyn and IV vancomycin as per the protocol lactic acid levels was also requested. And the patient is going to be started on pain medication IV morphine 2 mg every 4 hours as needed. The x-ray of the left foot shows osteomyelitis of the third toe. Physical therapy consult was requested. (2) Type 2 diabetes mellitus with left diabetic foot infection Is this a current diagnosis for this admission?: Yes Plan: 2017 patient has long-standing history of diabetes mellitus he is on metformin 500 mg p.o. twice daily at home and we are going to hold metformin and start him on insulin sliding scale before meals and at bedtime. (3) Bipolar disorder Qualifiers: Most recent bipolar episode type: most recent episode unspecified type Is this a current diagnosis for this admission?: Yes Plan: 10/26/2018 patient has history of bipolar disorder he is n.p.o. going to be n.p.o. V going to hold his medications for now. (4) Hypertension Is this a current diagnosis for this admission?: Yes Plan: 12/26/2017 patient has history of hypertension and is on propranolol at home we are going to hold propranolol for now. His vital signs are stable. (5) Smoker Is this a current diagnosis for this admission?: Yes Plan: 12/26/2017 patient is a chronic smoker smokes 2 cigarettes/day. Smoking counseling was provided. (6) Hyperlipemia Is this a current diagnosis for this admission?: Yes Plan: 10/26/2018 patient has history of hyperlipidemia not on any home medications. We are going to check his lipid panel tomorrow and if necessary start him on statins. - Time Time Spent: 30 to 50 Minutes Smoking Cessation Education: 3 to 10 minutes Medications reviewed and adjusted accordingly: Yes Anticipated discharge: Home, Home with Homehealth
[2018-10-26 16:37] LABS: CHOLESTEROL 121.68 mg/dL (0-200); TRIGLYCERIDES 118 mg/dL (<150)
--- NOTE | 2018-10-26 16:38 | RADIOLOGY REPORT (SQ) ---
EXAM DESCRIPTION: CHEST 2 VIEWS COMPLETED DATE/TIME: 10/26/2018 4:25 pm REASON FOR STUDY: sepsis COMPARISON: 10/14/2018 and 05/04/2007 EXAM PARAMETERS: NUMBER OF VIEWS: two views TECHNIQUE: Digital Frontal and Lateral radiographic views of the chest acquired. RADIATION DOSE: NA LIMITATIONS: none FINDINGS: LUNGS AND PLEURA: No opacities, masses or pneumothorax. No pleural effusion. MEDIASTINUM AND HILAR STRUCTURES: No masses or contour abnormalities. HEART AND VASCULAR STRUCTURES: Heart normal size. No evidence for failure. BONES: No acute findings. HARDWARE: None in the chest. OTHER: No other significant finding. IMPRESSION: 1. No significant interval changes since the previous examinations. No acute findings. TECHNICAL DOCUMENTATION: JOB ID: [id number] [employer]- All Rights Reserved Reading location - IP/workstation name: [email or web address]
[2018-10-26 16:47] LABS: DIRECT LDL 73 mg/dL (<100)
[2018-10-26] MEDS ORDERED: MORPHINE SULFATE 10 MG/ML INJ ONE (18:26)
[2018-10-26] MEDS: MORPHINE SULFATE 10 MG/ML INJ IV PRN (18:32)
[2018-10-26] MEDS: PIPERACILLIN SODIUM/TAZOBACTAM 4.5 GM in NORMAL SALINE 100 ML IV SCH (20:37)
[2018-10-26] MEDS: VANCOMYCIN HCL 1,500 MG in DEXTROSE 5%-WATER 250 ML IV SCH (22:16)
[2018-10-27] MEDS: PIPERACILLIN SODIUM/TAZOBACTAM 4.5 GM in NORMAL SALINE 100 ML IV SCH ×4 (00:17→18:03)
[2018-10-27 05:50] LABS: ABSOLUTE BASOPHILS # (AUTO) 0.1 10^3/uL (0.0-0.2); ABSOLUTE EOSINOPHILS # (AUTO) 0.3 10^3/uL (0.0-0.6); ABSOLUTE LYMPHOCYTES (AUTO) 4.4 10^3/uL (0.5-4.7); ABSOLUTE MONOCYTES (AUTO) 0.7 10^3/uL (0.1-1.4); ABSOLUTE NEUT (AUTO) 6.8 10^3/uL (1.7-8.2); BASOPHILS % (AUTO) 0.4 % (0-2); EOSINOPHILS % (AUTO) 2.4 % (0-6); HEMATOCRIT 37.6 % (37.9-51.0); HEMOGLOBIN 12.1 g/dL (13.5-17.0); LYMPHOCYTES % (AUTO) 35.8 % (13-45); MEAN CORPUSCULAR HEMOGLOBIN 19.3 pg (27.0-33.4); MEAN CORPUSCULAR HGB CONC 32.1 g/dL (32.0-36.0); MEAN CORPUSCULAR VOLUME 60 fl (80-97); PLATELET COUNT 269 10^3/uL (150-450); RED BLOOD COUNT 6.26 10^6/uL (4.35-5.55); RED CELL DISTRIBUTION WIDTH 16.8 % (11.5-14.0); SEGMENTED NEUTROPHILS % (AUTO) 55.4 % (42-78); TOTAL CELLS COUNTED % (AUTO) 100 %; WHITE BLOOD COUNT 12.3 10^3/uL (4.0-10.5)
[2018-10-27] MEDS: VANCOMYCIN HCL 1,500 MG in DEXTROSE 5%-WATER 250 ML IV SCH ×3 (05:59→22:03)
[2018-10-27 06:13] LABS: TOXIC GRANULATION 1+
[2018-10-27 06:14] LABS: ALANINE AMINOTRANSFERASE 11 U/L (21-72); ALBUMIN 3.4 g/dL (3.5-5.0); ALKALINE PHOSPHATASE 80 U/L (38-126); ANION GAP 11 (5-19); ASPARTATE AMINO TRANSFERASE 15 U/L (17-59); BILIRUBIN,DIRECT 0.2 mg/dL (0.0-0.4); BILIRUBIN,TOTAL 0.6 mg/dL (0.2-1.3); BLOOD UREA NITROGEN 9 mg/dL (7-20); CALCIUM 9.2 mg/dL (8.4-10.2); CARBON DIOXIDE 29 mmol/L (22-30); CHLORIDE 100 mmol/L (98-107); GLUCOSE 82 mg/dL (75-110); HYPOCHROMASIA 3+; OVALOCYTES 1+; PLATELET COMMENT ADEQUATE; POIKILOCYTOSIS 1+; POTASSIUM 4.4 mmol/L (3.6-5.0); SODIUM 139.9 mmol/L (137-145); TARGET CELLS SLIGHT; TOTAL PROTEIN 6.3 g/dL (6.3-8.2)
--- NOTE | 2018-10-27 07:40 | EKG REPORT ---
SEVERITY:- ABNORMAL ECG - SINUS RHYTHM ABNRM R PROG, CONSIDER ASMI OR LEAD PLACEMENT : Confirmed by: Jay Jay Morrow MD 27-Oct-2018 07:39:13
[2018-10-27] MEDS: MORPHINE SULFATE 10 MG/ML INJ IV PRN ×3 (08:35→14:35)
[2018-10-27] MEDS ORDERED: LIDOCAINE 1% INJ-PF (10 MG/ML) 30 ML SDV ONE (10:36)
[2018-10-27] MEDS ORDERED: BUPIVACAINE HCL 0.5 % INJ/PF 30 ML SDV ONE (10:36)
--- NOTE | 2018-10-27 10:39 | PDOC CONSULTATION ---
Consultation Consult Date: 10/27/18 Consult reason:: Osteomyelitis of the left foot History of Present Illness Admission Date/PCP: 10/26/18 18:40 History of Present Illness: MARÍA RHOADES is a 58 year old male seen at the request of the hospitalist service. This is a type II diabetic who was diagnosed with osteomyelitis of the left second toe back in August due to diabetes. The patient underwent amputation of the left second toe. The patient subsequently developed a surgical site infection. This has progressed to osteomyelitis of the third metatarsal. The patient presents today for continued pain of the left foot and worsening redness/drainage. The patient denies fevers or chills. His pain is isolated to the left foot, and does not radiate. He rates it at 4 out of 10. His pain is dull and throbbing. It is constant, and never goes away. Nothing makes his pain better or worse. The patient denies chest pain, shortness of breath, nausea, vomiting, abdominal pain, dizziness, orthostasis, headache, tremors, blurry vision. Past Medical History Cardiac Medical History: Reports: Myocardial Infarction - patient states "it was years ago", Hyperlipidema, Hypertension, Other - Ablation therapy. Pulmonary Medical History: Reports: None Endocrine Medical History: Reports: Diabetes Mellitus Type 2 Renal/ Medical History: Reports: None Malignancy Medical History: Reports: None GI Medical History: Reports: None Musculoskeltal Medical History: Reports: Gout - Patient has right ACL surgery in 1999. Psychiatric Medical History: Reports: None, Bipolar Disorder, Depression Past Surgical History Past Surgical History: Reports: Orthopedic Surgery - right knee, Other - Cardiac ablation. Left second toe amputation. Social History Smoking Status: Current Every Day Smoker Cigars Per Day: 2 Number of Years Smokin Last Time Smoked: 10/24/18 Frequency of Alcohol Use: None Hx Recreational Drug Use: No Drugs: None Hx Prescription Drug Abuse: No Family History Family History: Reviewed & Not Pertinent, Other - Father admitted with pneumonia Parental Family History Reviewed: Yes Children Family History Reviewed: Yes Sibling(s) Family History Reviewed.: Yes Medication/Allergy Home Medications: Metformin HCl [Glucophage 500 mg Tablet] 500 mg PO BID 08/31/18 Propranolol HCl [Inderal 20 mg Tablet] 20 mg PO TID 08/31/18 Atorvastatin Calcium [Lipitor 10 mg Tablet] 10 mg PO QHS 10/27/18 Levofloxacin [Levaquin 750 mg Tablet] 750 mg PO DAILY 10/27/18 [place] Carbonate 300 mg PO TID 10/27/18 Metronidazole [Flagyl 500 mg Tablet] 500 mg PO QID 10/27/18 Sulfamethoxazole/Trimethoprim [Bactrim Ds Tablet] 1 each PO BID 10/27/18 Allergies/Adverse Reactions: No Known Allergies Allergy (Verified 10/26/18 19:32) Review of Systems Constitutional: ABSENT: anorexia, chills, fatigue Eyes: ABSENT: visual disturbances Ears: ABSENT: hearing changes Nose, Mouth, and Throat: ABSENT: sore throat Cardiovascular: ABSENT: chest pain, edema, palpitations Gastrointestinal: ABSENT: abdominal pain, constipation Genitourinary: ABSENT: dysuria Musculoskeletal: ABSENT: back pain Integumentary: PRESENT: erythema - Left foot, wounds - Left foot Neurological: ABSENT: confusion, convulsions, dizziness Psychiatric: ABSENT: anxiety, depression Endocrine: ABSENT: cold intolerance, heat intolerance Hematologic/Lymphatic: ABSENT: easy bleeding, easy bruising Physical Exam Vital Signs: Temp Pulse Resp BP Pulse Ox 97.6 F 81 19 147/83 H 99 10/27/18 09:57 10/27/18 09:57 10/27/18 09:57 10/27/18 09:57 10/27/18 09:57 Intake & Output 10/26/18 10/27/18 10/28/18 06:59 06:59 06:59 Intake Total 1360 Balance 1360 Weight 134.4 kg General appearance: PRESENT: no acute distress Head exam: PRESENT: atraumatic, normocephalic Eye exam: PRESENT: EOMI, PERRLA. ABSENT: scleral icterus Mouth exam: PRESENT: moist, neck supple Teeth exam: PRESENT: poor dentation Neck exam: ABSENT: meningismus, tenderness, thyromegaly, tracheal deviation Respiratory exam: PRESENT: clear to auscultation rufina, unlabored. ABSENT: chest wall tenderness, tachypnea, wheezes Cardiovascular exam: PRESENT: RRR Pulses: PRESENT: normal radial pulses Vascular exam: PRESENT: normal capillary refill GI/Abdominal exam: PRESENT: soft. ABSENT: distended, firm, tenderness Rectal exam: PRESENT: deferred Extremities exam: PRESENT: other - Wound to the left foot with seropurulent drainage. There is erythema of the foot extending almost to the ankle.. ABSENT : clubbing Neurological exam: PRESENT: alert, awake, oriented to person, oriented to place , oriented to time, oriented to situation, CN II-XII grossly intact Psychiatric exam: ABSENT: agitated, anxious, depressed Focused psych exam: ABSENT: delusional Skin exam: PRESENT: erythema - See extremity exam. ABSENT: cyanosis, jaundice Results Laboratory Results: 10/27/18 05:10 10/27/18 05:10 10/27/18 10/27/18 05:10 05:10 WBC 12.3 H RBC 6.26 H Hgb 12.1 L Hct 37.6 L MCV 60 L MCH 19.3 L MCHC 32.1 RDW 16.8 H Plt Count 269 Seg Neutrophils % 55.4 Lymphocytes % 35.8 Monocytes % 6.0 Eosinophils % 2.4 Basophils % 0.4 Absolute Neutrophils 6.8 Absolute Lymphocytes 4.4 Absolute Monocytes 0.7 Absolute Eosinophils 0.3 Absolute Basophils 0.1 Sodium 139.9 Potassium 4.4 Chloride 100 Carbon Dioxide 29 Anion Gap 11 BUN 9 Creatinine 0.81 Est GFR ( Amer) > 60 Est GFR (Non-Af Amer) > 60 Glucose 82 Calcium 9.2 Total Bilirubin 0.6 AST 15 L ALT 11 L Alkaline Phosphatase 80 Total Protein 6.3 Albumin 3.4 L Impressions: Toe X-Ray 10/26/18 11:40 IMPRESSION: 1. Progressive destruction at the 3rd toe MP joint consistent with osteomyelitis. 2. Stable loss of bone at the 2nd metatarsal head status post 2nd toe amputation. Further callus has developed along the amputation site. Chest X-Ray 10/26/18 15:46 IMPRESSION: 1. No significant interval changes since the previous examinations. No acute findings. Assessment & Plan - Diagnosis (1) Osteomyelitis of left foot Qualifiers: Osteomyelitis type: chronic, with draining sinus Qualified Code(s): M86.472 - Chronic osteomyelitis with draining sinus, left ankle and foot Is this a current diagnosis for this admission?: Yes - Plan Summary Plan Summary: There is a 58-year-old male with osteomyelitis of the left third metatarsal. This developed after the patient underwent surgery for his necrotic left second toe. The patient has worsening of the bony destruction of the left metatarsal. I have recommended surgical excision of the left third toe and a portion of the left third metatarsal. Plan for wound VAC placement after the toe and metatarsal head has been removed. Hopefully, healing by secondary intention will prevent reinfection. This is been discussed with the patient at length. Risks/benefits discussed, informed consent obtained, and all questions answered.
[2018-10-27] MEDS ORDERED: FENTANYL CITRATE INJ/PF 100 MCG/2 ML AMPUL ONE (11:47)
[2018-10-27] MEDS ORDERED: MIDAZOLAM 2 MG/2 ML INJ ONE (11:47)
[2018-10-27] MEDS ORDERED: PROPOFOL INJ 200 MG/20 ML VIAL IV ONE (11:47)
[2018-10-27] MEDS ORDERED: ONDANSETRON HCL INJ/PF 4 MG/2 ML SDV IV PRN (12:12)
[2018-10-27] MEDS ORDERED: DIPHENHYDRAMINE HCL 50 MG/ML VIAL IV PRN (12:12)
[2018-10-27] MEDS ORDERED: MORPHINE SULFATE 10 MG/ML INJ IV PRN (12:12)
[2018-10-27] MEDS ORDERED: PROMETHAZINE HCL INJ 25 MG/1 ML VIAL IV PRN (12:12)
[2018-10-27] MEDS ORDERED: MEPERIDINE HCL/PF INJ 25 MG/1 ML DISP.SYRIN IV PRN (12:12)
[2018-10-27] MEDS ORDERED: FENTANYL CITRATE INJ/PF 100 MCG/2 ML AMPUL IV PRN ×3 (12:12)
[2018-10-27] MEDS: FENTANYL CITRATE INJ/PF 100 MCG/2 ML AMPUL ONE ×3 (13:17→13:30)
--- NOTE | 2018-10-27 13:19 | Operative Report ---
Nonrecallable Operative Report DATE OF SURGERY: 10/27/18 PREOPERATIVE DIAGNOSIS: Osteomyelitis of the left third metatarsal POSTOPERATIVE DIAGNOSIS: Same as above OPERATION: 1. Ray amputation of the left third toe. 2. Placement of negative pressure wound management system (wound measures 5 x 4 x 3 cm.) SURGEON: SONU MCCANN ANESTHESIA: LMAC TISSUE REMOVED OR ALTERED: Bone biopsy of the left third metatarsal COMPLICATIONS: None apparent ESTIMATED BLOOD LOSS: Minimal PROCEDURE: Drains/implants: Wound VAC system. Procedure in detail: After informed consent was obtained, the patient was brought into the operating room and laid in the supine position. The area of the left foot was prepped and draped in normal sterile fashion. An incision was created around the base of the left third toe, after adequate anesthesia had been administered. The previous second toe incision was incorporated into the new incision. Dissection was carried to the bone using a 10 blade scalpel. The toe was disarticulated at the metatarsal head. The toe and surrounding skin was then removed from the patient. Next, the soft tissue was cleared away from the third metatarsal. The area of pathologic fracture and infection was easily identified. An area proximal to this was chosen for transection. The bone was transected with a large bone cutter. A portion of the bone was then sent for culture. The area was cleaned, and hemostasis was achieved. The wound measured approximately 5 x 4 x 3 cm. A small wound VAC sponge was then placed into the wound. The wound VAC system was then attached to the patient in standard fashion. The procedure was at this time concluded. All sponge, instrument, and needle counts were correct x2. Condition: Stable.
--- NOTE | 2018-10-27 14:40 | PDOC PROGRESS REPORT ---
Subjective Progress Note for:: 10/27/18 Subjective:: 58-year-old male admitted for left third toe osteomyelitis he just came back from the OR he went for left third toe amputation along with partial left metatarsal amputation. That is post wound VAC placement. Alert and awake communicating well. . Reason For Visit: OSTEOMYELITIS, DM Physical Exam Vital Signs: Temp Pulse Resp BP Pulse Ox 97.5 F 91 20 148/86 H 96 10/27/18 13:05 10/27/18 13:35 10/27/18 13:35 10/27/18 13:35 10/27/18 13:35 Intake & Output 10/26/18 10/27/18 10/28/18 06:59 06:59 06:59 Intake Total 1360 0 Output Total 400 Balance 1360 -400 Weight 134.4 kg General appearance: PRESENT: mild distress Head exam: PRESENT: atraumatic Eye exam: PRESENT: conjunctiva pink, EOMI, PERRLA. ABSENT: scleral icterus Ear exam: PRESENT: normal external ear exam Mouth exam: PRESENT: moist, tongue midline Neck exam: ABSENT: carotid bruit, JVD, lymphadenopathy, thyromegaly Respiratory exam: PRESENT: clear to auscultation rufina. ABSENT: rales, rhonchi, wheezes Cardiovascular exam: PRESENT: RRR. ABSENT: diastolic murmur, rubs, systolic murmur Pulses: PRESENT: normal dorsalis pedis pul Vascular exam: PRESENT: normal capillary refill GI/Abdominal exam: PRESENT: normal bowel sounds, soft. ABSENT: distended, guarding, mass, organolmegaly, rebound, tenderness Rectal exam: PRESENT: deferred Extremities exam: PRESENT: other - Wound VAC is present on the left foot Neurological exam: PRESENT: alert, awake, oriented to person, oriented to place , oriented to time, oriented to situation, CN II-XII grossly intact. ABSENT: motor sensory deficit Psychiatric exam: PRESENT: appropriate affect, normal mood. ABSENT: homicidal ideation, suicidal ideation Skin exam: PRESENT: dry, intact, warm. ABSENT: cyanosis, rash Results Laboratory Results: 10/27/18 05:10 10/27/18 05:10 10/27/18 10/27/18 05:10 05:10 WBC 12.3 H RBC 6.26 H Hgb 12.1 L Hct 37.6 L MCV 60 L MCH 19.3 L MCHC 32.1 RDW 16.8 H Plt Count 269 Seg Neutrophils % 55.4 Lymphocytes % 35.8 Monocytes % 6.0 Eosinophils % 2.4 Basophils % 0.4 Absolute Neutrophils 6.8 Absolute Lymphocytes 4.4 Absolute Monocytes 0.7 Absolute Eosinophils 0.3 Absolute Basophils 0.1 Sodium 139.9 Potassium 4.4 Chloride 100 Carbon Dioxide 29 Anion Gap 11 BUN 9 Creatinine 0.81 Est GFR ( Amer) > 60 Est GFR (Non-Af Amer) > 60 Glucose 82 Calcium 9.2 Total Bilirubin 0.6 AST 15 L ALT 11 L Alkaline Phosphatase 80 Total Protein 6.3 Albumin 3.4 L Impressions: Toe X-Ray 10/26/18 11:40 IMPRESSION: 1. Progressive destruction at the 3rd toe MP joint consistent with osteomyelitis. 2. Stable loss of bone at the 2nd metatarsal head status post 2nd toe amputation. Further callus has developed along the amputation site. Chest X-Ray 10/26/18 15:46 IMPRESSION: 1. No significant interval changes since the previous examinations. No acute findings. Assessment & Plan - Diagnosis (1) Toe osteomyelitis, left Is this a current diagnosis for this admission?: Yes Plan: 10/26/2018 plan for the osteomyelitis is surgical consult patient is going to be n.p.o. from midnight probable surgery tomorrow wound cultures were requested blood cultures already done . I am going to start him on IV Zosyn and IV vancomycin as per the protocol lactic acid levels was also requested. And the patient is going to be started on pain medication IV morphine 2 mg every 4 hours as needed. The x-ray of the left foot shows osteomyelitis of the third toe. Physical therapy consult was requested. 10/27/2018 and went for a left third toe amputation and the surgeons not indicated the third metatarsal also has osteomyelitis and partial debridement of the mid metatarsal also and patient came back from the OR with wound VAC. Patient is right now on IV vancomycin and Zosyn. He is on IV pain medications. And a request for medical social worker consult PT consult. The wound cultures showing gram-positive cocci. Blood cultures are pending. (2) Type 2 diabetes mellitus with left diabetic foot infection Is this a current diagnosis for this admission?: Yes Plan: 10/26 2018 patient has long-standing history of diabetes mellitus he is on metformin 500 mg p.o. twice daily at home and we are going to hold metformin and start him on insulin sliding scale before meals and at bedtime. 10/27/2018 patient is on metformin at home which was on hold is getting insulin sliding scale. Patient's latest blood sugar is 97. Continue the present management. (3) Bipolar disorder Qualifiers: Most recent bipolar episode type: most recent episode unspecified type Is this a current diagnosis for this admission?: Yes Plan: 10/26/2018 patient has history of bipolar disorder he is n.p.o. going to be n.p.o. V going to hold his medications for now. 10/27/2018 we will resume the home medications. Including his bipolar disorder medications. (4) Hypertension Qualifiers: Hypertension type: essential hypertension Qualified Code(s): I10 - Essential (primary) hypertension Is this a current diagnosis for this admission?: Yes Plan: 10/26/2018 patient has history of hypertension and is on propranolol at home we are going to hold propranolol for now. His vital signs are stable. 10/27/2018 blood pressure is 148/95 today be going to resume his home medications. (5) Smoker Is this a current diagnosis for this admission?: Yes Plan: 10/26/2018 patient is a chronic smoker smokes 2 cigarettes/day. Smoking counseling was provided. 10/27/2018 it is a chronic smoker again smoking cessation counseling was provided. (6) Hyperlipemia Is this a current diagnosis for this admission?: Yes Plan: 10/26/2018 patient has history of hyperlipidemia not on any home medications. We are going to check his lipid panel tomorrow and if necessary start him on statins. 10/27/2018 waiting for the lipid panel. I am going to start him on Crestor 5 mg p.o. daily.
[2018-10-27 15:44] LABS: VANCOMYCIN,TROUGH 16.1 ug/mL (5.0-20.0)
[2018-10-27] MEDS ORDERED: PROPRANOLOL HCL 10 MG TABLET PO ONE (16:30)
[2018-10-27] MEDS ORDERED: LISINOPRIL 5 MG TABLET PO ONE (16:30)
[2018-10-27] MEDS: HYDROCODONE/ACETAMINOPHEN 10-325 MG TABLET PO PRN ×2 (18:02→22:09)
[2018-10-27] MEDS: INSULIN LISPRO 100 UNIT/ML 3 ML VIAL SUBCUT PRN (18:03)
[2018-10-27] MEDS: KETOROLAC TROMETHAMINE INJ/PF 30 MG/1 ML SDV IV SCH (18:08)
[2018-10-27] MEDS ORDERED: KETOROLAC TROMETHAMINE INJ/PF 30 MG/1 ML SDV IV SCH (22:00)
[2018-10-27] MEDS: PROPRANOLOL HCL 10 MG TABLET PO SCH (22:03)
[2018-10-27] MEDS: SIMVASTATIN 40 MG TABLET PO SCH (22:03)
[2018-10-27] MEDS: LITHIUM CARBONATE 300 MG CAPSULE PO SCH (22:03)
[2018-10-28] MEDS: PIPERACILLIN SODIUM/TAZOBACTAM 4.5 GM in NORMAL SALINE 100 ML IV SCH ×5 (00:23→23:36)
[2018-10-28] MEDS: KETOROLAC TROMETHAMINE INJ/PF 30 MG/1 ML SDV IV SCH ×3 (02:30→17:52)
[2018-10-28] MEDS: PROPRANOLOL HCL 10 MG TABLET PO SCH ×3 (05:27→21:35)
[2018-10-28] MEDS: HYDROCODONE/ACETAMINOPHEN 10-325 MG TABLET PO PRN ×4 (05:32→21:37)
[2018-10-28 06:01] LABS: ABSOLUTE BASOPHILS # (AUTO) 0.1 10^3/uL (0.0-0.2); ABSOLUTE EOSINOPHILS # (AUTO) 0.6 10^3/uL (0.0-0.6); ABSOLUTE LYMPHOCYTES (AUTO) 3.3 10^3/uL (0.5-4.7); ABSOLUTE MONOCYTES (AUTO) 0.7 10^3/uL (0.1-1.4); ABSOLUTE NEUT (AUTO) 7.5 10^3/uL (1.7-8.2); BASOPHILS % (AUTO) 1.1 % (0-2); HEMATOCRIT 36.6 % (37.9-51.0); HEMOGLOBIN 11.8 g/dL (13.5-17.0); LYMPHOCYTES % (AUTO) 27.1 % (13-45); MEAN CORPUSCULAR HEMOGLOBIN 19.4 pg (27.0-33.4); MEAN CORPUSCULAR HGB CONC 32.3 g/dL (32.0-36.0); MEAN CORPUSCULAR VOLUME 60 fl (80-97); PLATELET COUNT 240 10^3/uL (150-450); RED CELL DISTRIBUTION WIDTH 16.4 % (11.5-14.0); SEGMENTED NEUTROPHILS % (AUTO) 60.8 % (42-78); TOTAL CELLS COUNTED % (AUTO) 100 %; WHITE BLOOD COUNT 12.3 10^3/uL (4.0-10.5)
[2018-10-28 06:18] LABS: ALANINE AMINOTRANSFERASE 13 U/L (21-72); ALKALINE PHOSPHATASE 66 U/L (38-126); ANION GAP 7 (5-19); ASPARTATE AMINO TRANSFERASE 14 U/L (17-59); BILIRUBIN,DIRECT 0.2 mg/dL (0.0-0.4); BILIRUBIN,TOTAL 0.5 mg/dL (0.2-1.3); BLOOD UREA NITROGEN 10 mg/dL (7-20); CALCIUM 8.6 mg/dL (8.4-10.2); CARBON DIOXIDE 28 mmol/L (22-30); CHLORIDE 104 mmol/L (98-107); CHOLESTEROL 103.63 mg/dL (0-200); GLUCOSE 104 mg/dL (75-110); POTASSIUM 4.1 mmol/L (3.6-5.0); SODIUM 138.6 mmol/L (137-145); TOTAL PROTEIN 5.9 g/dL (6.3-8.2); TRIGLYCERIDES 56 mg/dL (<150)
[2018-10-28] MEDS: VANCOMYCIN HCL 1,500 MG in DEXTROSE 5%-WATER 250 ML IV SCH ×3 (06:19→21:35)
[2018-10-28 06:28] LABS: DIRECT LDL 68 mg/dL (<100)
[2018-10-28 06:44] LABS: POLYCHROMASIA SLIGHT; TOXIC GRANULATION 1+
[2018-10-28 06:45] LABS: HYPOCHROMASIA 2+; OVALOCYTES 1+; POIKILOCYTOSIS 1+; TARGET CELLS SLIGHT; TEAR DROP CELLS SLIGHT
[2018-10-28 06:46] LABS: PLATELET COMMENT ADEQUATE
[2018-10-28] MEDS: INSULIN LISPRO 100 UNIT/ML 3 ML VIAL SUBCUT PRN (08:43)
[2018-10-28] MEDS: LISINOPRIL 5 MG TABLET PO SCH (09:50)
[2018-10-28] MEDS: LITHIUM CARBONATE 300 MG CAPSULE PO SCH ×2 (09:50→21:35)
[2018-10-28] MEDS: MORPHINE SULFATE 10 MG/ML INJ IV PRN (10:50)
--- NOTE | 2018-10-28 12:06 | PDOC PROGRESS REPORT ---
Subjective Progress Note for:: 10/28/18 Subjective:: 58-year-old male admitted for left third toe osteomyelitis he just came back from the OR he went for left third toe amputation along with partial left metatarsal amputation. That is post wound VAC placement. Alert and awake communicating well. . 10/28/2018 is comfortably in the bed woke up and calling denies any compliance. Afebrile. No acute events in the last 24 hours. Reason For Visit: OSTEOMYELITIS, DM Physical Exam Vital Signs: Temp Pulse Resp BP Pulse Ox 97.9 F 70 20 124/76 100 10/28/18 08:00 10/28/18 08:00 10/28/18 08:00 10/28/18 08:00 10/28/18 08:00 Intake & Output 10/27/18 10/28/18 10/29/18 06:59 06:59 06:59 Intake Total 1360 5220 Output Total 1690 Balance 1360 3530 Weight 134.4 kg General appearance: PRESENT: no acute distress Head exam: PRESENT: atraumatic Eye exam: PRESENT: PERRLA Neck exam: ABSENT: carotid bruit, JVD, lymphadenopathy, thyromegaly Respiratory exam: PRESENT: clear to auscultation rufina. ABSENT: rales, rhonchi, wheezes GI/Abdominal exam: PRESENT: normal bowel sounds, soft. ABSENT: distended, guarding, mass, organolmegaly, rebound, tenderness Extremities exam: PRESENT: other - wound VAC is present on the left foot. Neurological exam: PRESENT: alert, altered, oriented to time, oriented to situation. ABSENT: motor sensory deficit Psychiatric exam: PRESENT: appropriate affect, normal mood. ABSENT: homicidal ideation, suicidal ideation Results Laboratory Results: 10/28/18 05:47 10/28/18 05:47 10/28/18 10/28/18 05:47 05:47 WBC 12.3 H RBC 6.10 H Hgb 11.8 L Hct 36.6 L MCV 60 L MCH 19.4 L MCHC 32.3 RDW 16.4 H Plt Count 240 Seg Neutrophils % 60.8 Lymphocytes % 27.1 Monocytes % 6.0 Eosinophils % 5.0 Basophils % 1.1 Absolute Neutrophils 7.5 Absolute Lymphocytes 3.3 Absolute Monocytes 0.7 Absolute Eosinophils 0.6 Absolute Basophils 0.1 Sodium 138.6 Potassium 4.1 Chloride 104 Carbon Dioxide 28 Anion Gap 7 BUN 10 Creatinine 0.75 Est GFR ( Amer) > 60 Est GFR (Non-Af Amer) > 60 Glucose 104 Calcium 8.6 Total Bilirubin 0.5 AST 14 L ALT 13 L Alkaline Phosphatase 66 Total Protein 5.9 L Albumin 3.0 L Triglycerides 56 Cholesterol 103.63 LDL Cholesterol Direct 68 VLDL Cholesterol 11.0 HDL Cholesterol 41 Impressions: Toe X-Ray 10/26/18 11:40 IMPRESSION: 1. Progressive destruction at the 3rd toe MP joint consistent with osteomyelitis. 2. Stable loss of bone at the 2nd metatarsal head status post 2nd toe amputation. Further callus has developed along the amputation site. Chest X-Ray 10/26/18 15:46 IMPRESSION: 1. No significant interval changes since the previous examinations. No acute findings. Assessment & Plan - Diagnosis (1) Toe osteomyelitis, left Is this a current diagnosis for this admission?: Yes Plan: 10/26/2018 plan for the osteomyelitis is surgical consult patient is going to be n.p.o. from midnight probable surgery tomorrow wound cultures were requested blood cultures already done . I am going to start him on IV Zosyn and IV vancomycin as per the protocol lactic acid levels was also requested. And the patient is going to be started on pain medication IV morphine 2 mg every 4 hours as needed. The x-ray of the left foot shows osteomyelitis of the third toe. Physical therapy consult was requested. 10/27/2018 and went for a left third toe amputation and the surgeons indicated the third metatarsal also has osteomyelitis and partial debridement of the metatarsal also and patient came back from the OR with wound VAC. Patient is right now on IV vancomycin and Zosyn. He is on IV pain medications. And a request for executive secretary social welfare consult PT consult. The wound cultures showing gram- positive cocci. Blood cultures are pending. 10/28/2018 patient has left third toe amputation and partial debridement of the metatarsal, he was placed on wound VAC after the procedure patient is getting IV vancomycin and Zosyn at this time the wound cultures are pending blood cultures are negative so far. I discussed the care with Dr. Holt he thinks patient may need at least 1 week of antibiotics as an outpatient, as per him he does not have to be necessarily IV antibiotics p.o. clindamycin may be sufficient for him to go home. Patient preferred to stay another day because he is concerned about the recurrence of the wound. We will continue the present antibiotic therapy at this time wait for the blood cultures wound cultures and probably we will discharge him on p.o. antibiotics as appropriate. Vancomycin trough is 16.1. (2) Type 2 diabetes mellitus with left diabetic foot infection Is this a current diagnosis for this admission?: Yes Plan: 10/26 2018 patient has long-standing history of diabetes mellitus he is on metformin 500 mg p.o. twice daily at home and we are going to hold metformin and start him on insulin sliding scale before meals and at bedtime. 10/27/2018 patient is on metformin at home which was on hold is getting insulin sliding scale. Patient's latest blood sugar is 97. Continue the present management. 10/28/2018 latest blood sugar is 110. Patient on he is on insulin sliding scale. I am going to check his hemoglobin A1c. We will continue the present management. (3) Bipolar disorder Qualifiers: Most recent bipolar episode type: most recent episode unspecified type Is this a current diagnosis for this admission?: Yes Plan: 10/26/2018 patient has history of bipolar disorder he is n.p.o. going to be n.p.o. V going to hold his medications for now. 10/27/2018 we will resume the home medications. Including his bipolar disorder medications. 10/28/2018 patient is on lithium carbonate at home for bipolar disorder and it was resumed during this hospital stay. (4) Hypertension Qualifiers: Hypertension type: essential hypertension Qualified Code(s): I10 - Essential (primary) hypertension Is this a current diagnosis for this admission?: Yes Plan: 10/26/2018 patient has history of hypertension and is on propranolol at home we are going to hold propranolol for now. His vital signs are stable. 10/27/2018 blood pressure is 148/95 today be going to resume his home medications. 10/28/2018 blood pressure is 124/70. We will continue the present management. Patient was started on lisinopril 5 mg p.o. daily during this hospital stay. (5) Smoker Is this a current diagnosis for this admission?: Yes (6) Hyperlipemia Is this a current diagnosis for this admission?: Yes Plan: 10/26/2018 patient has history of hyperlipidemia not on any home medications. We are going to check his lipid panel tomorrow and if necessary start him on statins. 10/27/2018 waiting for the lipid panel. I am going to start him on simvastatin 20 mg p.o. daily. 10/28/2018 lipid panel came back okay. ALT is 68. Patient was started on simvastatin 20 mg p.o. daily. - Time Time Spent with patient: 15-24 minutes Medications reviewed and adjusted accordingly: Yes
--- NOTE | 2018-10-28 19:22 | PDOC PROGRESS REPORT ---
Subjective Progress Note for:: 10/28/18 Subjective:: Mild pains amp site Reason For Visit: OSTEOMYELITIS, DM Physical Exam Vital Signs: Temp Pulse Resp BP Pulse Ox 97.4 F 71 16 127/76 H 99 10/28/18 15:35 10/28/18 15:35 10/28/18 15:35 10/28/18 15:35 10/28/18 15:35 Intake & Output 10/27/18 10/28/18 10/29/18 06:59 06:59 06:59 Intake Total 1360 5220 2521 Output Total 1690 Balance 1360 3530 2521 Weight 134.4 kg 134.4 kg Exam: wound vac in place at the 3rd toe amp site Results Laboratory Results: 10/28/18 05:47 10/28/18 05:47 10/28/18 10/28/18 05:47 05:47 WBC 12.3 H RBC 6.10 H Hgb 11.8 L Hct 36.6 L MCV 60 L MCH 19.4 L MCHC 32.3 RDW 16.4 H Plt Count 240 Seg Neutrophils % 60.8 Lymphocytes % 27.1 Monocytes % 6.0 Eosinophils % 5.0 Basophils % 1.1 Absolute Neutrophils 7.5 Absolute Lymphocytes 3.3 Absolute Monocytes 0.7 Absolute Eosinophils 0.6 Absolute Basophils 0.1 Sodium 138.6 Potassium 4.1 Chloride 104 Carbon Dioxide 28 Anion Gap 7 BUN 10 Creatinine 0.75 Est GFR ( Amer) > 60 Est GFR (Non-Af Amer) > 60 Glucose 104 Calcium 8.6 Total Bilirubin 0.5 AST 14 L ALT 13 L Alkaline Phosphatase 66 Total Protein 5.9 L Albumin 3.0 L Triglycerides 56 Cholesterol 103.63 LDL Cholesterol Direct 68 VLDL Cholesterol 11.0 HDL Cholesterol 41 Impressions: Toe X-Ray 10/26/18 11:40 IMPRESSION: 1. Progressive destruction at the 3rd toe MP joint consistent with osteomyelitis. 2. Stable loss of bone at the 2nd metatarsal head status post 2nd toe amputation. Further callus has developed along the amputation site. Chest X-Ray 10/26/18 15:46 IMPRESSION: 1. No significant interval changes since the previous examinations. No acute findings. Assessment & Plan - Time Time Spent with patient: 15-24 minutes - Plan Summary Plan Summary: Arrangement to be made for home VAC. Patient already has wound vac at [facility]. Discharge planning nurse to make arrangement for home visits for wound vac change and [facility]. Would continue antibiotic therapy for at least 7 days.
[2018-10-28] MEDS: SIMVASTATIN 40 MG TABLET PO SCH (21:37)
[2018-10-29] MEDS: KETOROLAC TROMETHAMINE INJ/PF 30 MG/1 ML SDV IV SCH ×2 (01:42→10:03)
[2018-10-29] MEDS: PIPERACILLIN SODIUM/TAZOBACTAM 4.5 GM in NORMAL SALINE 100 ML IV SCH ×2 (05:25→11:22)
[2018-10-29 06:08] LABS: ABSOLUTE BASOPHILS # (AUTO) 0.1 10^3/uL (0.0-0.2); ABSOLUTE EOSINOPHILS # (AUTO) 0.6 10^3/uL (0.0-0.6); ABSOLUTE LYMPHOCYTES (AUTO) 3.5 10^3/uL (0.5-4.7); ABSOLUTE MONOCYTES (AUTO) 0.8 10^3/uL (0.1-1.4); ABSOLUTE NEUT (AUTO) 8.7 10^3/uL (1.7-8.2); BASOPHILS % (AUTO) 0.6 % (0-2); EOSINOPHILS % (AUTO) 4.5 % (0-6); HEMATOCRIT 37.1 % (37.9-51.0); HEMOGLOBIN 11.9 g/dL (13.5-17.0); LYMPHOCYTES % (AUTO) 25.4 % (13-45); MEAN CORPUSCULAR HEMOGLOBIN 19.5 pg (27.0-33.4); MEAN CORPUSCULAR HGB CONC 32.2 g/dL (32.0-36.0); MEAN CORPUSCULAR VOLUME 61 fl (80-97); MONOCYTES % (AUTO) 5.6 % (3-13); PLATELET COUNT 233 10^3/uL (150-450); RED BLOOD COUNT 6.11 10^6/uL (4.35-5.55); RED CELL DISTRIBUTION WIDTH 16.7 % (11.5-14.0); SEGMENTED NEUTROPHILS % (AUTO) 63.9 % (42-78); TOTAL CELLS COUNTED % (AUTO) 100 %; WHITE BLOOD COUNT 13.7 10^3/uL (4.0-10.5)
[2018-10-29 06:33] LABS: ANISOCYTOSIS 1+; BURR CELLS 1+; OVALOCYTES 1+; POIKILOCYTOSIS 1+; SCHISTOCYTES 1+
[2018-10-29 06:34] LABS: PLATELET COMMENT ADEQUATE; PLATELET GIANT PRESENT; TARGET CELLS SLIGHT
[2018-10-29] MEDS: VANCOMYCIN HCL 1,500 MG in DEXTROSE 5%-WATER 250 ML IV SCH ×2 (06:34→13:07)
[2018-10-29 06:38] LABS: ALANINE AMINOTRANSFERASE 16 U/L (21-72); ALBUMIN 3.3 g/dL (3.5-5.0); ALKALINE PHOSPHATASE 77 U/L (38-126); ANION GAP 11 (5-19); ASPARTATE AMINO TRANSFERASE 18 U/L (17-59); BILIRUBIN,DIRECT 0.2 mg/dL (0.0-0.4); BILIRUBIN,TOTAL 0.4 mg/dL (0.2-1.3); BLOOD UREA NITROGEN 9 mg/dL (7-20); CALCIUM 9.2 mg/dL (8.4-10.2); CARBON DIOXIDE 26 mmol/L (22-30); CHLORIDE 102 mmol/L (98-107); GLUCOSE 89 mg/dL (75-110); POTASSIUM 4.4 mmol/L (3.6-5.0); SODIUM 139.4 mmol/L (137-145); TOTAL PROTEIN 6.2 g/dL (6.3-8.2)
[2018-10-29] MEDS: PROPRANOLOL HCL 10 MG TABLET PO SCH ×2 (06:38→15:07)
[2018-10-29] MEDS: LISINOPRIL 5 MG TABLET PO SCH (10:03)
[2018-10-29] MEDS: LITHIUM CARBONATE 300 MG CAPSULE PO SCH (10:03)
[2018-10-29] MEDS: HYDROCODONE/ACETAMINOPHEN 10-325 MG TABLET PO PRN (10:04)
--- NOTE | 2018-10-29 14:05 | PDOC DISCHARGE SUMMARY ---
General - Admit/Disc Date/PCP Admission Date/Primary Care Provider: 10/26/18 18:40 Discharge Date: 10/29/18 - Discharge Diagnosis (1) Toe osteomyelitis, left Is this a current diagnosis for this admission?: Yes Summary: 10/26/2018 plan for the osteomyelitis is surgical consult patient is going to be n.p.o. from midnight probable surgery tomorrow wound cultures were requested blood cultures already done . I am going to start him on IV Zosyn and IV vancomycin as per the protocol lactic acid levels was also requested. And the patient is going to be started on pain medication IV morphine 2 mg every 4 hours as needed. The x-ray of the left foot shows osteomyelitis of the third toe. Physical therapy consult was requested. 10/27/2018 and went for a left third toe amputation and the surgeons indicated the third metatarsal also has osteomyelitis and partial debridement of the metatarsal also and patient came back from the OR with wound VAC. Patient is right now on IV vancomycin and Zosyn. He is on IV pain medications. And a request for social media community manager consult PT consult. The wound cultures showing gram- positive cocci. Blood cultures are pending. 10/28/2018 patient has left third toe amputation and partial debridement of the metatarsal, he was placed on wound VAC after the procedure patient is getting IV vancomycin and Zosyn at this time the wound cultures are pending blood cultures are negative so far. I discussed the care with Dr. Holt he thinks patient may need at least 1 week of antibiotics as an outpatient, as per him he does not have to be necessarily IV antibiotics p.o. clindamycin may be sufficient for him to go home. Patient preferred to stay another day because he is concerned about the recurrence of the wound. We will continue the present antibiotic therapy at this time wait for the blood cultures wound cultures and probably we will discharge him on p.o. antibiotics as appropriate. Vancomycin trough is 16.1. 10/29/2018 and is doing fine blood cultures are negative so far cultures from the toe site shows gram-positive cocci .discussed antibiotics options with the surgeon is recommendation is to send the patient home on p.o. clindamycin for 1 week. Patient is going home on wound VAC wound VAC arrangements were placed in the chart. Patient was went to hospital treated with IV vancomycin and Zosyn. Vancomycin trough levels are therapeutic during the hospital course. He had left third toe amputation and partial debridement of the metatarsal. (2) Type 2 diabetes mellitus with left diabetic foot infection Is this a current diagnosis for this admission?: Yes Summary: 10/26 2018 patient has long-standing history of diabetes mellitus he is on metformin 500 mg p.o. twice daily at home and we are going to hold metformin and start him on insulin sliding scale before meals and at bedtime. 10/27/2018 patient is on metformin at home which was on hold is getting insulin sliding scale. Patient's latest blood sugar is 97. Continue the present management. 10/28/2018 latest blood sugar is 110. Patient on he is on insulin sliding scale. I am going to check his hemoglobin A1c. We will continue the present management. 10/29/2018 blood sugars are stable throughout the hospital course. He was on metformin at home which was on hold during the hospital stay. He is he is on insulin sliding scale during the hospital stay. Test blood sugar is 139. Him to continue his metformin and sliding scale at home. (3) Bipolar disorder Is this a current diagnosis for this admission?: Yes Summary: 10/26/2018 patient has history of bipolar disorder he is n.p.o. going to be n.p.o. V going to hold his medications for now. 10/27/2018 we will resume the home medications. Including his bipolar disorder medications. 10/28/2018 patient is on lithium carbonate at home for bipolar disorder and it was resumed during this hospital stay. 10/29/2018 patient has history of bipolar disorder on lithium carbonate which was on hold for a day because the patient was n.p.o. once he started taking the oral medications it was restarted again no problems anxiety or depression noticed during the hospital course. (4) Hypertension Is this a current diagnosis for this admission?: Yes Summary: 10/26/2018 patient has history of hypertension and is on propranolol at home we are going to hold propranolol for now. His vital signs are stable. 10/27/2018 blood pressure is 148/95 today be going to resume his home medications. 10/28/2018 blood pressure is 124/70. We will continue the present management. Patient was started on lisinopril 5 mg p.o. daily during this hospital stay. 10/29/2018 pressure today is 147/75. Started on lisinopril 5 mg p.o. daily as renal protective measure because patient is a diabetic. And I wrote the prescription for him to continue the medication at home. (5) Smoker Is this a current diagnosis for this admission?: Yes Summary: counseling was provided during the hospital stay. patient has history of chronic smoking. (6) Hyperlipemia Is this a current diagnosis for this admission?: Yes Summary: 10/26/2018 patient has history of hyperlipidemia not on any home medications. We are going to check his lipid panel tomorrow and if necessary start him on statins. 10/27/2018 waiting for the lipid panel. I am going to start him on simvastatin 20 mg p.o. daily. 10/28/2018 lipid panel came back okay. ALT is 68. Patient was started on simvastatin 20 mg p.o. daily. 10/29/2018 patient was started on simvastatin 20 mg p.o. daily based on the fact that patient is a diabetic. I wrote the prescription for him to take it at home. She is going to follow-up with the surgical team and the wound care center for the wound management. He is going home on wound VAC and wound VAC orders was written by the surgeons. - Additional Information Resuscitation Status: Full Code Discharge Diet: Diabetic Discharge Activity: Activity As Tolerated Prescriptions: Clindamycin HCl [Cleocin 300 mg Capsule] 300 mg PO BID 7 Days #14 capsule Hydrocodone/Acetaminophen [[place] 10-325 mg Tablet] 1 tab PO Q4HP PRN #20 tablet PRN Reason: Lisinopril [Prinivil 5 mg Tablet] 5 mg PO DAILY #30 tablet Simvastatin [Zocor 40 mg Tablet] 20 mg PO QHS #30 tablet Home Medications: Metformin HCl [Glucophage 500 mg Tablet] 500 mg PO BID 08/31/18 Propranolol HCl [Inderal 20 mg Tablet] 20 mg PO TID 08/31/18 Atorvastatin Calcium [Lipitor 10 mg Tablet] 10 mg PO QHS 10/27/18 [place] Carbonate 300 mg PO TID 10/27/18 Clindamycin HCl [Cleocin 300 mg Capsule] 300 mg PO BID 7 Days #14 capsule Hydrocodone/Acetaminophen [Denver 10-325 mg Tablet] 1 tab PO Q4HP PRN #20 tablet 10/29/18 Lisinopril [Prinivil 5 mg Tablet] 5 mg PO DAILY #30 tablet 10/29/18 [place] Carbonate [Lithobid 300 mg Capsule] 300 mg PO Q12 capsule 10/29/18 Propranolol HCl [Inderal 10 mg Tablet] 10 mg PO Q8 tablet 10/29/18 Simvastatin [Zocor 40 mg Tablet] 20 mg PO QHS #30 tablet 10/29/18 History of Present Illness History of Present Illness: MARÍA RHOADES is a 58 year old male Came to the emergency room today with complaints of left foot pain and swelling for the last several days. He had a amputation of the second toe on August 31 after that followed up with wound care center and he was recently started on antibiotics for the swelling discharge and redness of the medial toe he completed 6 days of antibiotics the symptoms are not improving so he was advised to come to the emergency room for further evaluation in the ER is complaining of pain scale of 7 x 10 complaining of pertinent purulent discharge from the wound site the left foot x-rays was done found to have indicating osteomyelitis surgery was consulted the planning to take him to the OR tomorrow. Juancho denies any previous history of similar problems. She has history of diabetes mellitus and hypertension bipolar disorder. Physical Exam Vital Signs: Temp Pulse Resp BP Pulse Ox 97.1 F 73 16 147/75 H 98 10/29/18 12:00 10/29/18 12:00 10/29/18 12:00 10/29/18 12:00 10/29/18 12:00 Intake & Output 10/28/18 10/29/18 10/30/18 06:59 06:59 06:59 Intake Total 5220 3671 705 Output Total 1690 2300 1150 Balance 3530 1371 -445 Weight 133.9 kg General appearance: PRESENT: no acute distress Eye exam: PRESENT: PERRLA Neck exam: ABSENT: carotid bruit, JVD, lymphadenopathy, thyromegaly Respiratory exam: PRESENT: clear to auscultation rufina. ABSENT: rales, rhonchi, wheezes Cardiovascular exam: PRESENT: RRR. ABSENT: diastolic murmur, rubs, systolic murmur GI/Abdominal exam: PRESENT: normal bowel sounds, soft. ABSENT: distended, guarding, mass, organolmegaly, rebound, tenderness Neurological exam: PRESENT: alert, awake, oriented to person, oriented to place , oriented to time, oriented to situation, CN II-XII grossly intact. ABSENT: motor sensory deficit Psychiatric exam: PRESENT: appropriate affect, normal mood. ABSENT: homicidal ideation, suicidal ideation Results Laboratory Results: 10/29/18 05:24 10/29/18 05:24 10/29/18 10/29/18 05:24 05:24 WBC 13.7 H RBC 6.11 H Hgb 11.9 L Hct 37.1 L MCV 61 L MCH 19.5 L MCHC 32.2 RDW 16.7 H Plt Count 233 Seg Neutrophils % 63.9 Lymphocytes % 25.4 Monocytes % 5.6 Eosinophils % 4.5 Basophils % 0.6 Absolute Neutrophils 8.7 H Absolute Lymphocytes 3.5 Absolute Monocytes 0.8 Absolute Eosinophils 0.6 Absolute Basophils 0.1 Sodium 139.4 Potassium 4.4 Chloride 102 Carbon Dioxide 26 Anion Gap 11 BUN 9 Creatinine 0.70 Est GFR ( Amer) > 60 Est GFR (Non-Af Amer) > 60 Glucose 89 Calcium 9.2 Total Bilirubin 0.4 AST 18 ALT 16 L Alkaline Phosphatase 77 Total Protein 6.2 L Albumin 3.3 L Impressions: Toe X-Ray 10/26/18 11:40 IMPRESSION: 1. Progressive destruction at the 3rd toe MP joint consistent with osteomyelitis. 2. Stable loss of bone at the 2nd metatarsal head status post 2nd toe amputation. Further callus has developed along the amputation site. Chest X-Ray 10/26/18 15:46 IMPRESSION: 1. No significant interval changes since the previous examinations. No acute findings. Qualifiers - * PATIENT BEING DISCHARGED WITH ANY OF THE FOLLOWING DIAGNOSIS: No VTE patient discharged on overlapping Therapy?: Yes
[2018-10-29] MEDS: MORPHINE SULFATE 10 MG/ML INJ IV PRN (15:13)
[2018-10-29 16:49] VITALS: BP 150/83
--- NOTE | 2018-10-29 18:26 | OPERATIVE REPORT E ---
Operative Report NAME: MARÍA RHOADES : 1960 AGE: 58Y DATE OF SURGERY: 10/29/2018 ROOM: 434 PREOPERATIVE DIAGNOSIS: Acute postoperative bleeding from left foot status post left 3rd metatarsal amputation with open wound. POSTOPERATIVE DIAGNOSIS: Acute postoperative bleeding from left foot status post left 3rd metatarsal amputation with open wound. OPERATION: Control of hemorrhage from open left foot surgical wound. SURGEON: ELIZABETH SANCHEZ M.D. ANESTHESIA: None. DRAINS: None. TISSUE REMOVED OR ALTERED: 45 mL PROCEDURE: I was called to the floor by the nurse taking care of the patient, who is 2 days status post left 3rd ray amputation. He has had a previous left 2nd ray amputation. Wound was left open, Wound Vac in position for 48 hours. The patient was undergoing Wound Vac change and arterial and venous bleeding resulted. Bleeding continued despite gentle compression. Surgery was called to the scene. The patient's left foot was exposed. We brought some supplies from the operating room, including light, suture, suction, etc. The wound was irrigated with saline. The findings were significant for a partially granulating surface of deep soft tissue; the transected metatarsal head of the recent transection was not actively bleeding. On the medial side of the metatarsal stump was an area of bleeding, but it was too low and in a crevice to sufficiently secure a suture. Therefore, a combination of silver nitrate sticks were used to control the hemorrhage. This was successful. We observed the area for a while and there was no other mechanical bleeding. The wound was dressed with Surgicel, Xeroform, 4 x 4s. The patient tolerated the procedure well. He will be discharged home after a defined period of observation with home health to change his dressing in 48 hours; also will require leg elevation and use of surgical boot. DICTATING PHYSICIAN: ELIZABETH SANCHEZ M.D. [id number] PHY#: [id number] ID: [id number] JOB#: [id number] ACCT: [id number] cc:ELIZABETH SANCHEZ M.D. >
== END 2018-10-29 17:20 | disposition home health service (06) | DRG 617 ==
LOC: ER 10:58 → EH 18:40 → 4S 20:44
PROVIDERS: ADMIT Emergency Medicine; ATTEND Emergency Medicine
PROC: 0Y6N0ZC Detachment at Left Foot, Partial 3rd Ray, Open Approach (ICD-10-PCS; principal; 2018-10-27 11:30)
PROC: 0Y3N0ZZ Control Bleeding in Left Foot, Open Approach (ICD-10-PCS; 2018-10-29)
DX: E11.69 Type 2 diabetes mellitus with other specified complication (principal); M86.9 Osteomyelitis, unspecified; L76.22 Postprocedural hemorrhage of skin and subcutaneous tissue following other procedure; I10 Essential (primary) hypertension; M10.9 Gout, unspecified; E78.5 Hyperlipidemia, unspecified; F31.9 Bipolar disorder, unspecified; F17.210 Nicotine dependence, cigarettes, uncomplicated; Y83.5 Amputation of limb(s) as the cause of abnormal reaction of the patient, or of later complication, without mention of misadventure at the time of the procedure; Y92.230 Patient room in hospital as the place of occurrence of the external cause; I25.2 Old myocardial infarction; Z89.422 Acquired absence of other left toe(s); Z79.84 Long term (current) use of oral hypoglycemic drugs; Z71.6 Tobacco abuse counseling
CPT/HCPCS: 01480; 36415; 71046; 80053; 80061; 80202; 82962; 83036; 83605; 85025; 85610; 85652; 86140; 87040; 87070; 87075; 87077; 87186; 87205; 93005; 93010; 96365; 96366; 99285; G8978-GP; G8979-GP; G8980-GP; J1815; J1885; J2250; J2270; J2543; J2704; J3010; J3370; J3490; J7030; J7060

== ENCOUNTER 2020-11-10 11:51 | Emergency (ER) | payer MEDICARE, MEDICAID ==
--- NOTE | 2020-11-10 12:31 | RADIOLOGY REPORT (SQ) ---
EXAM DESCRIPTION: CHEST SINGLE VIEW IMAGES COMPLETED DATE/TIME: 11/10/2020 12:17 pm REASON FOR STUDY: bed 6 chest pain COMPARISON: Chest radiographs 10/26/2000 EXAM PARAMETERS: NUMBER OF VIEWS: One view. TECHNIQUE: Single frontal radiographic view of the chest acquired. RADIATION DOSE: NA LIMITATIONS: None. FINDINGS: LUNGS AND PLEURA: Mild left basilar strandy densities. No pneumothorax or pleural effusio n. Stable 6 mm right basilar pulmonary nodule. MEDIASTINUM AND HILAR STRUCTURES: No masses. Contour normal. HEART AND VASCULAR STRUCTURES: Heart normal in size. Normal vasculature. BONES: No acute findings. HARDWARE: None in the chest. OTHER: No other significant finding. IMPRESSION: Mild left basilar strandy densities likely representing atelectasis. Infection cannot b e excluded in the appropriate acute clinical setting. TECHNICAL DOCUMENTATION: JOB ID: [id number] 2010 [employer]- All Rights Reserved Reading location - IP/workstation name: [email or web address]
[2020-11-10 13:22] LABS: ALBUMIN 3.7 g/dL (3.5-5.0); ALKALINE PHOSPHATASE 90 U/L (38-126); ANION GAP 10 (5-19); ASPARTATE AMINO TRANSFERASE 28 U/L (17-59); BILIRUBIN,DIRECT 0.2 mg/dL (0.0-0.4); BILIRUBIN,TOTAL 0.6 mg/dL (0.2-1.3); BLOOD UREA NITROGEN 20 mg/dL (7-20); CALCIUM 9.2 mg/dL (8.4-10.2); CARBON DIOXIDE 23 mmol/L (22-30); CHLORIDE 104 mmol/L (98-107); CREATINE KINASE 36 U/L (55-170); GLUCOSE 88 mg/dL (75-110); POTASSIUM 4.6 mmol/L (3.6-5.0); TOTAL PROTEIN 7.2 g/dL (6.3-8.2)
[2020-11-10 13:33] LABS: CREATINE KINASE MB 1.35 ng/mL (<4.55)
[2020-11-10 13:37] LABS: TROPONIN I < 0.012 ng/mL
--- NOTE | 2020-11-10 14:56 | EKG REPORT ---
SEVERITY:- BORDERLINE ECG - SINUS RHYTHM BORDERLINE T ABNORMALITIES, INFERIOR LEADS : Confirmed by: Chalino Olivier 10-Nov-2020 14:56:12
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
== END 2020-11-10 13:48 | disposition left against medical advice (07) ==
LOC: ER 11:51
DX: R07.89 Other chest pain (principal); M79.602 Pain in left arm; I25.2 Old myocardial infarction
CPT/HCPCS: 36415; 71045; 80053; 82550; 82553; 84484; 93005; 93010; 99281